=== PATIENT | female | born 1955 | race Caucasian/White ===

== ENCOUNTER 2017-06-09 12:24 | Emergency (ER) | payer MEDICARE, MEDICAID ==
[~2017-06-09] VITALS: Ht 170.2 cm; Wt 78.0 kg
[~2017-06-09 12:24] MED LIST: ALBU18HF2 IH; BUDE10.24 IH; CALC260T6 PO; CLIN-80 PO; CYCL-1 PO; DIPH25CA83 PO; DULO-31 PO; FURO-150 PO; LISI-222 PO; LOPE1TAB46 PO; OMEP-84 PO; POTA8TAB46 PO; SPIIN INH; SUMA100T PO; TOP100T PO; TRAZ-143 PO
[2017-06-09] MEDS ORDERED: ketorolac trometh inj. 60 MG/2 ML VIAL IM ONE (14:25)
[2017-06-09] MEDS ORDERED: IBUP-1984 PO (14:26)
[2017-06-09 14:36] VITALS: BP 125/82
== END 2017-06-09 14:37 | disposition home or self-care (01) ==
LOC: ER 12:24
DX: G89.29 Other chronic pain (principal); M25.571 Pain in right ankle and joints of right foot; M79.671 Pain in right foot; F15.10 Other stimulant abuse, uncomplicated; G43.909 Migraine, unspecified, not intractable, without status migrainosus; I25.10 Atherosclerotic heart disease of native coronary artery without angina pectoris; E78.00 Pure hypercholesterolemia, unspecified; I10 Essential (primary) hypertension; J44.9 Chronic obstructive pulmonary disease, unspecified; Z90.49 Acquired absence of other specified parts of digestive tract; Z98.890 Other specified postprocedural states; Z98.51 Tubal ligation status; Z88.0 Allergy status to penicillin; Z88.6 Allergy status to analgesic agent; Z88.5 Allergy status to narcotic agent; Z91.010 Allergy to peanuts; Z91.018 Allergy to other foods; Z91.040 Latex allergy status; Z79.899 Other long term (current) drug therapy
CPT/HCPCS: 96372; 99283; J1885

== ENCOUNTER 2017-07-20 09:17 | Emergency (ER) | payer MEDICARE, MEDICAID ==
[~2017-07-20] VITALS: Ht 170.2 cm; Wt 85.4 kg
[2017-07-20 09:24] VITALS: BP 142/79
== END 2017-07-20 11:39 | disposition home or self-care (01) ==
LOC: ER 09:17
DX: M25.532 Pain in left wrist (principal); I25.10 Atherosclerotic heart disease of native coronary artery without angina pectoris; E78.00 Pure hypercholesterolemia, unspecified; I10 Essential (primary) hypertension; J44.9 Chronic obstructive pulmonary disease, unspecified; G89.29 Other chronic pain; F15.90 Other stimulant use, unspecified, uncomplicated; G43.909 Migraine, unspecified, not intractable, without status migrainosus; Z90.49 Acquired absence of other specified parts of digestive tract; Z98.890 Other specified postprocedural states; Z98.51 Tubal ligation status; Z59.0 Homelessness; Z56.0 Unemployment, unspecified; Z88.0 Allergy status to penicillin; Z88.2 Allergy status to sulfonamides; Z91.018 Allergy to other foods
CPT/HCPCS: 29125; 73110; 99284

== ENCOUNTER 2017-08-22 11:28 | Emergency (ER) | payer MEDICARE, MEDICAID ==
[~2017-08-22] VITALS: Ht 170.2 cm; Wt 84.0 kg
[2017-08-22] MEDS ORDERED: ipratropium/albuterol 3ml nebule NEB ONE (12:00)
[2017-08-22] MEDS ORDERED: ALBU8.5H8 IH (13:16)
[2017-08-22] MEDS ORDERED: GUAI1TBM19 PO (13:16)
[2017-08-22] MEDS ORDERED: BENZ-49 PO (13:16)
[2017-08-22] MEDS ORDERED: DOXY100C43 PO (13:16)
[2017-08-22] MEDS ORDERED: PRED50TA PO (13:16)
[2017-08-22] MEDS ORDERED: AFRIN NS (13:16)
[2017-08-22 13:25] VITALS: BP 151/89
== END 2017-08-22 13:27 | disposition home or self-care (01) ==
LOC: ER 11:28
DX: J44.1 Chronic obstructive pulmonary disease with (acute) exacerbation (principal); J32.9 Chronic sinusitis, unspecified; G43.909 Migraine, unspecified, not intractable, without status migrainosus; I25.10 Atherosclerotic heart disease of native coronary artery without angina pectoris; E78.00 Pure hypercholesterolemia, unspecified; I10 Essential (primary) hypertension; G89.29 Other chronic pain; F15.10 Other stimulant abuse, uncomplicated; F17.200 Nicotine dependence, unspecified, uncomplicated; Z90.49 Acquired absence of other specified parts of digestive tract; Z59.0 Homelessness; Z86.19 Personal history of other infectious and parasitic diseases; Z56.0 Unemployment, unspecified; Z88.1 Allergy status to other antibiotic agents; Z88.0 Allergy status to penicillin; Z88.5 Allergy status to narcotic agent; Z88.2 Allergy status to sulfonamides; Z91.010 Allergy to peanuts; Z91.018 Allergy to other foods; Z91.040 Latex allergy status; Z79.899 Other long term (current) drug therapy
CPT/HCPCS: 71046; 93005; 94640; 94760; 99284

== ENCOUNTER 2017-08-29 07:59 | Outpatient (CLI) | payer MEDICARE, MEDICAID ==
[~2017-08-29 07:59] MED LIST changes: +ALBU8.5H8 IH; +BENZ-49 PO; +DOXY100C43 PO; +GUAI1TBM19 PO; +PRED50TA PO
== END 2017-08-29 23:59 | disposition home or self-care (01) ==
LOC: RAD 07:59
PROVIDERS: ATTEND Physician Assistant
DX: R56.9 Unspecified convulsions (principal); M25.512 Pain in left shoulder
CPT/HCPCS: 95816

== ENCOUNTER 2018-01-31 16:13 | Emergency (ER) | payer MEDICARE, MEDICAID ==
[~2018-01-31] VITALS: Ht 152.4 cm; Wt 82.7 kg
[~2018-01-31 16:13] MED LIST changes: -CLIN-80 PO; +CLIN300C85 PO; -DOXY100C43 PO; -TRAZ-143 PO; +TRAZ-218 PO
[2018-01-31] MEDS ORDERED: naproxen 500mg tablet PO ONE (17:55)
[2018-01-31] MEDS ORDERED: clindamycin 150mg capsule PO ONE (17:55)
[2018-01-31] MEDS ORDERED: CLIN150C2 PO (17:55)
[2018-01-31 18:05] VITALS: BP 130/84
== END 2018-01-31 18:10 | disposition home or self-care (01) ==
LOC: ER 16:14
DX: L08.9 Local infection of the skin and subcutaneous tissue, unspecified (principal); G43.909 Migraine, unspecified, not intractable, without status migrainosus; I25.10 Atherosclerotic heart disease of native coronary artery without angina pectoris; E78.00 Pure hypercholesterolemia, unspecified; I10 Essential (primary) hypertension; J44.9 Chronic obstructive pulmonary disease, unspecified; G89.29 Other chronic pain; F15.90 Other stimulant use, unspecified, uncomplicated; Z90.49 Acquired absence of other specified parts of digestive tract; Z98.890 Other specified postprocedural states; Z98.51 Tubal ligation status; Z59.0 Homelessness; Z56.0 Unemployment, unspecified; Z88.0 Allergy status to penicillin; Z88.6 Allergy status to analgesic agent; Z88.5 Allergy status to narcotic agent; Z88.2 Allergy status to sulfonamides; Z91.040 Latex allergy status; Z79.899 Other long term (current) drug therapy
CPT/HCPCS: 99283

== ENCOUNTER 2018-02-01 15:04 | Inpatient (IN) | payer MEDICARE, MEDICAID ==
[~2018-02-01] VITALS: Ht 152.4 cm; Wt 82.7 kg
[~2018-02-01 15:04] MED LIST changes: +CLIN150C2 PO
[2018-02-01] MEDS ORDERED: vancomycin/NS 1 GM ADD-VANTAGE 250 ML IV STA (15:44)
[2018-02-01] MEDS ORDERED: CefTRIAXone 2gm/D5W 50ml 50 ML IV ONE (15:45)
[2018-02-01] MEDS ORDERED: normal saline 1000ML IV soln IV ONE (15:45)
[2018-02-01 16:36] LABS: BASOPHILS # (AUTO) 0.1 X10'3 (0-0.2); BASOPHILS % (AUTO) 0.8 % (0-1); EOSINOPHILS % (AUTO) 0 % (0-6); HEMATOCRIT 41.3 % (35.0-45.0); HEMOGLOBIN 13.6 g/dl (12.0-16.0); LYMPHOCYTES # (AUTO) 1.2 X10'3 (1.1-4.8); LYMPHOCYTES % (AUTO) 6.6 % (21-51); MEAN CORPUSCULAR HGB CONC 33.1 % (33.0-36.5); MEAN CORPUSCULAR VOLUME 96.9 FL (78-98); MEAN PLATELET VOLUME 8.5 FL (7.4-10.4); MONOCYTES # (AUTO) 1.3 X10'3 (0-0.9); MONOCYTES % (AUTO) 7.2 % (2-12); NEUTROPHILS # (AUTO) 14.9 X10'3 (1.8-7.7); NEUTROPHILS % (AUTO) 85.4 % (42-75); PLATELET COUNT 194 X10'3 (140-440); RED BLOOD COUNT 4.26 X10'6 (4.20-5.60); RED CELL DISTRIBUTION WIDTH 13.2 % (11.5-14.5); WHITE BLOOD COUNT 17.5 X10'3 (4.5-11.0)
[2018-02-01 16:53] LABS: ALBUMIN 2.8 G/DL (3.4-5.0); ANION GAP 7 (8-16); BILIRUBIN,TOTAL 0.7 MG/DL (0.1-1.0); BLOOD UREA NITROGEN 14 MG/DL (7-18); BUN/CREATININE RATIO 16.1 (6.6-38.0); CALCIUM 8.1 MG/DL (8.5-10.1); CHLORIDE 103 MMOL/L (99-107); CREATININE 0.87 MG/DL (0.40-0.90); GLUCOSE 105 MG/DL (70-104); MAGNESIUM 1.9 MG/DL (1.5-2.4); POTASSIUM 3.7 MMOL/L (3.5-5.1); SODIUM 136 MMOL/L (135-145); TOTAL CARBON DIOXIDE 25.7 MMOL/L (24-32); TOTAL PROTEIN 6.7 G/DL (6.4-8.2); eGFR 66 ML/MIN
[2018-02-01 16:53] LABS: CLARITY,URINE SLIGHTLY CLOUDY (Clear); COLOR,URINE YELLOW (Yellow); GLUCOSE, URINE NEGATIVE (Neg); KETONES,URINE NEGATIVE (Neg); LEUKOCYTE ESTERASE ,URINE SMALL (Neg); NITRITES, URINE NEGATIVE (Neg); OCCULT BLOOD,URINE NEGATIVE (Neg); PROTEIN,URINE NEGATIVE (Neg); UA COLLECTION TYPE CLN CATCH MIDSTREAM; URINE HCG NEGATIVE (NEG)
[2018-02-01 16:54] LABS: ALANINE AMINOTRANSFERASE 20 U/L (12-78); ALBUMIN/GLOBULIN RATIO 0.7 (1.1-1.5); ALKALINE PHOSPHATASE 75 IU/L (46-116); ASPARTATE AMINO TRANSFERASE 17 U/L (10-37)
[2018-02-01 16:56] LABS: PARTIAL THROMBOPLASTIN TIME 29 SECONDS (22-32); PROTHROMBIN TIME 10.5 SECONDS (9.0-12.0)
[2018-02-01 17:01] LABS: BACTERIA,URINE 1+ /HPF (Neg); MUCUS STRANDS MODERATE /LPF (Neg); RBC,URINE 0-2 /HPF (0-2); SQUAMOUS EPITHELIAL CELL,UR MANY /LPF (FEW)
[2018-02-01] MEDS ORDERED: non-formulary drug (Albuterol Sulfate (Proair Hfa) 2 PUFFS) IH PRN (17:05)
[2018-02-01] MEDS ORDERED: SUMAtriptan 25 MG tablet PO PRN (17:05)
[2018-02-01] MEDS ORDERED: albuterol 2.5 MG/3 ML nebule NEB PRN ×2 (17:10→17:40)
[2018-02-01] MEDS ORDERED: potassium Cl 20 mEq SR tablet PO PRN (17:30)
[2018-02-01] MEDS ORDERED: magnesium Cl slow-release 64mg tablet PO PRN (17:30)
[2018-02-01] MEDS ORDERED: magnesium 4gm in 100ml NS 100 ML IV PRN (17:30)
[2018-02-01] MEDS ORDERED: mag hydrox/Alum hydrox/simeth 30ml oral suspension PO PRN (17:30)
[2018-02-01] MEDS ORDERED: magnesium 1gm/100ml D5W IVPB 100 ML IV PRN (17:30)
[2018-02-01] MEDS ORDERED: acetaminophen 325mg tablet PO PRN ×2 (17:30)
[2018-02-01] MEDS ORDERED: magnesium hydroxide 30ml (MOM) UD suspension PO PRN (17:30)
[2018-02-01] MEDS ORDERED: potassium Cl 40MEQ/NS 500ml 500 ML IV PRN ×2 (17:30)
[2018-02-01] MEDS ORDERED: ondansetron/PF 4mg/2ml inj IV PRN (17:30)
[2018-02-01] MEDS ORDERED: vancomycin inj 500 MG in normal saline 100ml IV soln 100 ML IV ONE (18:30)
[2018-02-01] MEDS: normal saline 1000ml 1,000 ML IV SCH (18:56)
[2018-02-01] MEDS ORDERED: albuterol 2.5 MG/3 ML nebule NEB SCH (20:00)
[2018-02-01] MEDS: budesonide 0.5mg/2ml UD nebule IH SCH (20:03)
[2018-02-01] MEDS: ipratropium/albuterol 3ml nebule NEB SCH (20:03)
[2018-02-01 20:07] VITALS: BP 145/67
[2018-02-01] MEDS ORDERED: pantoprazole 40mg Tablet.DR PO ONE (20:20)
[2018-02-01] MEDS: topiramate 100mg tablet PO SCH (20:24)
[2018-02-01] MEDS: heparin, porcine 5000 units/ml vial SQ SCH (20:24)
[2018-02-01] MEDS: pantoprazole 40mg Tablet.DR PO SCH (20:25)
[2018-02-01] MEDS: lisinopril 10 MG tablet PO SCH (20:26)
[2018-02-01] MEDS: duloxetine 30mg CAPSULE.DR PO SCH (20:26)
[2018-02-01] MEDS: calcium carbonate 500mg tablet PO SCH (20:26)
[2018-02-01] MEDS: traZODone 50mg tablet PO SCH (20:27)
[2018-02-01] MEDS: HYDROcodone/acetaminophen 5mg/325mg tablet PO PRN (20:37)
[2018-02-02 00:07] VITALS: BP 109/46
[2018-02-02] MEDS: ipratropium/albuterol 3ml nebule NEB SCH ×4 (03:19→20:08)
[2018-02-02] MEDS: HYDROcodone/acetaminophen 5mg/325mg tablet PO PRN ×2 (03:50→12:13)
[2018-02-02 05:46] LABS: BASOPHILS % (AUTO) 0.3 % (0-1); EOSINOPHILS # (AUTO) 0.2 X10'3 (0-0.9); EOSINOPHILS % (AUTO) 1.7 % (0-6); HEMATOCRIT 37.2 % (35.0-45.0); HEMOGLOBIN 12.4 g/dl (12.0-16.0); LYMPHOCYTES # (AUTO) 1.7 X10'3 (1.1-4.8); LYMPHOCYTES % (AUTO) 14.3 % (21-51); MEAN CORPUSCULAR HEMOGLOBIN 32.2 PG (27.0-31.0); MEAN CORPUSCULAR HGB CONC 33.3 % (33.0-36.5); MEAN CORPUSCULAR VOLUME 96.7 FL (78-98); MEAN PLATELET VOLUME 8.8 FL (7.4-10.4); MONOCYTES # (AUTO) 1.1 X10'3 (0-0.9); MONOCYTES % (AUTO) 9.6 % (2-12); NEUTROPHILS # (AUTO) 8.8 X10'3 (1.8-7.7); NEUTROPHILS % (AUTO) 74.1 % (42-75); PLATELET COUNT 180 X10'3 (140-440); RED BLOOD COUNT 3.84 X10'6 (4.20-5.60); RED CELL DISTRIBUTION WIDTH 14.1 % (11.5-14.5); WHITE BLOOD COUNT 11.9 X10'3 (4.5-11.0)
[2018-02-02 06:33] LABS: ALANINE AMINOTRANSFERASE 16 U/L (12-78); ALBUMIN 2.3 G/DL (3.4-5.0); ALBUMIN/GLOBULIN RATIO 0.7 (1.1-1.5); ALKALINE PHOSPHATASE 68 IU/L (46-116); ANION GAP 7 (8-16); ASPARTATE AMINO TRANSFERASE 18 U/L (10-37); BILIRUBIN,TOTAL 0.4 MG/DL (0.1-1.0); BLOOD UREA NITROGEN 12 MG/DL (7-18); BUN/CREATININE RATIO 17.6 (6.6-38.0); CALCIUM 7.7 MG/DL (8.5-10.1); CHLORIDE 109 MMOL/L (99-107); CREATININE 0.68 MG/DL (0.40-0.90); GLUCOSE 90 MG/DL (70-104); MAGNESIUM 1.9 MG/DL (1.5-2.4); POTASSIUM 3.3 MMOL/L (3.5-5.1); SODIUM 139 MMOL/L (135-145); TOTAL CARBON DIOXIDE 23.1 MMOL/L (24-32); TOTAL PROTEIN 5.8 G/DL (6.4-8.2); eGFR 87 ML/MIN
[2018-02-02 07:03] VITALS: BP 102/54
[2018-02-02] MEDS: calcium carbonate 500mg tablet PO SCH ×2 (07:50→20:37)
[2018-02-02] MEDS: pantoprazole 40mg Tablet.DR PO SCH (07:51)
[2018-02-02] MEDS: diphenhydrAMINE 25mg capsule PO SCH (07:51)
[2018-02-02] MEDS: heparin, porcine 5000 units/ml vial SQ SCH ×2 (07:52→20:37)
[2018-02-02] MEDS: normal saline 1000ml 1,000 ML IV SCH ×2 (07:52→20:09)
[2018-02-02] MEDS: budesonide 0.5mg/2ml UD nebule IH SCH ×2 (07:54→20:08)
[2018-02-02] MEDS: potassium Cl 20 mEq SR tablet PO PRN ×3 (07:56→20:40)
[2018-02-02] MEDS ORDERED: levoFLOXACIN 500mg tablet PO SCH (08:00)
[2018-02-02] MEDS ORDERED: K and/or MAG REPLACEMENT MC SCH (08:00)
[2018-02-02] MEDS ORDERED: vancomycin inj 1,250 MG in normal saline 250ml IV soln 250 ML IV SCH ×2 (08:00→16:00)
[2018-02-02] MEDS ORDERED: ipratropium 0.5 MG/2.5ML nebule IH SCH (08:00)
[2018-02-02 11:00] VITALS: BP 94/49
[2018-02-02 18:00] VITALS: BP 103/60
[2018-02-02] MEDS: duloxetine 30mg CAPSULE.DR PO SCH (20:36)
[2018-02-02] MEDS: traZODone 50mg tablet PO SCH (20:36)
[2018-02-02] MEDS: vancomycin inj 1,250 MG in normal saline 250ml IV soln 250 ML IV SCH (20:37)
[2018-02-02] MEDS: lisinopril 10 MG tablet PO SCH (20:37)
[2018-02-02] MEDS: topiramate 100mg tablet PO SCH (20:37)
[2018-02-02] MEDS: lactobacillus rhamnosus 10,000 MMU CELLS/CAPSULE PO SCH (20:37)
[2018-02-03] VITALS: BP 95/49
[2018-02-03] MEDS: ipratropium/albuterol 3ml nebule NEB SCH ×2 (03:00→08:29)
[2018-02-03] MEDS: normal saline 1000ml 1,000 ML IV SCH (03:37)
[2018-02-03 05:50] LABS: BASOPHILS % (AUTO) 0.6 % (0-1); EOSINOPHILS # (AUTO) 0.3 X10'3 (0-0.9); EOSINOPHILS % (AUTO) 5.6 % (0-6); HEMATOCRIT 37.2 % (35.0-45.0); HEMOGLOBIN 12.4 g/dl (12.0-16.0); LYMPHOCYTES # (AUTO) 1.7 X10'3 (1.1-4.8); LYMPHOCYTES % (AUTO) 28.2 % (21-51); MEAN CORPUSCULAR HGB CONC 33.2 % (33.0-36.5); MEAN CORPUSCULAR VOLUME 96.3 FL (78-98); MEAN PLATELET VOLUME 8.6 FL (7.4-10.4); MONOCYTES # (AUTO) 0.6 X10'3 (0-0.9); MONOCYTES % (AUTO) 10.8 % (2-12); NEUTROPHILS # (AUTO) 3.2 X10'3 (1.8-7.7); NEUTROPHILS % (AUTO) 54.8 % (42-75); PLATELET COUNT 186 X10'3 (140-440); RED BLOOD COUNT 3.86 X10'6 (4.20-5.60); RED CELL DISTRIBUTION WIDTH 14.7 % (11.5-14.5); WHITE BLOOD COUNT 5.9 X10'3 (4.5-11.0)
[2018-02-03 06:10] LABS: ALANINE AMINOTRANSFERASE 17 U/L (12-78); ALBUMIN/GLOBULIN RATIO 0.6 (1.1-1.5); ALKALINE PHOSPHATASE 65 IU/L (46-116); ANION GAP 5 (8-16); ASPARTATE AMINO TRANSFERASE 16 U/L (10-37); BILIRUBIN,TOTAL 0.2 MG/DL (0.1-1.0); BLOOD UREA NITROGEN 8 MG/DL (7-18); BUN/CREATININE RATIO 10.1 (6.6-38.0); CALCIUM 7.8 MG/DL (8.5-10.1); CHLORIDE 110 MMOL/L (99-107); CREATININE 0.79 MG/DL (0.40-0.90); GLUCOSE 90 MG/DL (70-104); MAGNESIUM 1.8 MG/DL (1.5-2.4); SODIUM 140 MMOL/L (135-145); TOTAL CARBON DIOXIDE 25.1 MMOL/L (24-32); TOTAL PROTEIN 5.4 G/DL (6.4-8.2); eGFR 74 ML/MIN
[2018-02-03 07:00] VITALS: BP 98/45
[2018-02-03] MEDS ORDERED: VANCOMYCIN LEVEL IV ONE ×2 (07:30→19:30)
[2018-02-03] MEDS: vancomycin inj 1,250 MG in normal saline 250ml IV soln 250 ML IV SCH (08:03)
[2018-02-03] MEDS: diphenhydrAMINE 25mg capsule PO SCH (08:03)
[2018-02-03] MEDS: lactobacillus rhamnosus 10,000 MMU CELLS/CAPSULE PO SCH (08:04)
[2018-02-03] MEDS: calcium carbonate 500mg tablet PO SCH (08:04)
[2018-02-03] MEDS: pantoprazole 40mg Tablet.DR PO SCH (08:04)
[2018-02-03] MEDS: heparin, porcine 5000 units/ml vial SQ SCH (08:05)
[2018-02-03] MEDS: budesonide 0.5mg/2ml UD nebule IH SCH (08:29)
== END 2018-02-03 11:26 | disposition home or self-care (01) | DRG 872 ==
LOC: ER 15:05 → ED HOLD 17:29 → SUR 3N 19:50
PROVIDERS: ADMIT Internal Medicine; ATTEND Internal Medicine
DX: A41.9 Sepsis, unspecified organism (principal); L03.115 Cellulitis of right lower limb; J44.9 Chronic obstructive pulmonary disease, unspecified; E78.00 Pure hypercholesterolemia, unspecified; E78.5 Hyperlipidemia, unspecified; F17.200 Nicotine dependence, unspecified, uncomplicated; F20.9 Schizophrenia, unspecified; F41.0 Panic disorder [episodic paroxysmal anxiety]; G89.29 Other chronic pain; I10 Essential (primary) hypertension; I25.10 Atherosclerotic heart disease of native coronary artery without angina pectoris; F32.9 Major depressive disorder, single episode, unspecified; F41.9 Anxiety disorder, unspecified; G43.909 Migraine, unspecified, not intractable, without status migrainosus; F15.90 Other stimulant use, unspecified, uncomplicated; E87.6 Hypokalemia; B19.20 Unspecified viral hepatitis C without hepatic coma; Z59.0 Homelessness; Z88.0 Allergy status to penicillin; Z90.49 Acquired absence of other specified parts of digestive tract; Z88.8 Allergy status to other drugs, medicaments and biological substances; Z88.2 Allergy status to sulfonamides; Z88.1 Allergy status to other antibiotic agents; Z91.040 Latex allergy status; Z91.010 Allergy to peanuts; Z91.018 Allergy to other foods; Z79.899 Other long term (current) drug therapy; Z71.6 Tobacco abuse counseling
CPT/HCPCS: 36415; 71045; 80053; 81001; 81025; 83605; 83735; 84145; 85025; 85610; 85730; 87040; 87070; 93005; 94640; 94760; 96365; 96368; 99285; A6213; J0696; J1644; J3370; J7030; J7626; Q0163

== ENCOUNTER 2018-02-07 08:28 | Outpatient (CLI) | payer MEDICARE, MEDICAID ==
[2018-02-07] VITALS (7 sets, daily range): BP systolic 120–128; BP diastolic 64–74
[~2018-02-07] VITALS: Ht 152.4 cm; Wt 85.0 kg
[~2018-02-07 08:28] MED LIST changes: -BENZ-49 PO; -CLIN150C2 PO; -CLIN300C85 PO; -CYCL-1 PO; -DIPH25CA83 PO; -FURO-150 PO; -GUAI1TBM19 PO; -LOPE1TAB46 PO; -POTA8TAB46 PO; -PRED50TA PO; -SUMA100T PO
[2018-02-07] MEDS ORDERED: aminophylline 250mg/10ml inj. IV ONE (09:20)
[2018-02-07] MEDS ORDERED: regadenoson 0.4mg/5ml syringe IV ONE ×2 (09:20→10:18)
[2018-02-07] MEDS ORDERED: nitroGLYCERIN 0.4mg SUBLingual tab SL PRN (09:20)
[2018-02-07] MEDS ORDERED: CAFFEINE CITRATE 60 MG/3 ML injection vial IV ONE ×2 (10:15→10:18)
== END 2018-02-07 23:59 | disposition home or self-care (01) ==
LOC: RAD 08:28
PROVIDERS: ATTEND Internal Medicine Cardiovascular Disease
DX: Z01.818 Encounter for other preprocedural examination (principal); I10 Essential (primary) hypertension; F17.200 Nicotine dependence, unspecified, uncomplicated; F19.10 Other psychoactive substance abuse, uncomplicated; I25.10 Atherosclerotic heart disease of native coronary artery without angina pectoris; J44.9 Chronic obstructive pulmonary disease, unspecified; Z98.51 Tubal ligation status; Z79.899 Other long term (current) drug therapy; Z96.653 Presence of artificial knee joint, bilateral
CPT/HCPCS: 78452; 93017; A9500

== ENCOUNTER 2018-02-13 11:04 | Emergency (ER) | payer MEDICARE, MEDICAID ==
[~2018-02-13] VITALS: Ht 152.4 cm; Wt 90.0 kg
[2018-02-13] MEDS ORDERED: epiNEPHrine 1 mg/ml inj SQ STA (11:19)
[2018-02-13] MEDS ORDERED: famotidine/PF 10 mg/ml inj IV ONE (11:20)
[2018-02-13] MEDS ORDERED: methylPREDNISolone sod succ 125mg/2ml vial IV ONE (11:20)
[2018-02-13] MEDS ORDERED: normal saline 1000ML IV soln IVB ONE (11:20)
[2018-02-13] MEDS ORDERED: EPIN0.3P8 IM (12:07)
[2018-02-13 12:29] VITALS: BP 139/57
== END 2018-02-13 12:31 | disposition home or self-care (01) ==
LOC: ER 11:05
DX: T78.40XA Allergy, unspecified, initial encounter (principal); G43.909 Migraine, unspecified, not intractable, without status migrainosus; I25.10 Atherosclerotic heart disease of native coronary artery without angina pectoris; E78.00 Pure hypercholesterolemia, unspecified; I10 Essential (primary) hypertension; J44.9 Chronic obstructive pulmonary disease, unspecified; F15.90 Other stimulant use, unspecified, uncomplicated; Z90.49 Acquired absence of other specified parts of digestive tract; Z98.51 Tubal ligation status; Z56.0 Unemployment, unspecified; Z59.0 Homelessness; Z88.6 Allergy status to analgesic agent; Z88.1 Allergy status to other antibiotic agents; Z91.040 Latex allergy status; Z88.0 Allergy status to penicillin; Z88.2 Allergy status to sulfonamides; Z91.018 Allergy to other foods; Z91.010 Allergy to peanuts; X58.XXXA Exposure to other specified factors, initial encounter
CPT/HCPCS: 96372; 96374; 96375; 99284; J0171; J2930; J3490; 96361

== ENCOUNTER 2018-04-03 10:13 | Inpatient (IN) | payer MEDICARE, MEDICAID ==
[2018-04-02 12:10] LABS: BASOPHILS # (AUTO) 0.1 X10'3 (0-0.2); BASOPHILS % (AUTO) 0.5 % (0-1); EOSINOPHILS # (AUTO) 0.2 X10'3 (0-0.9); EOSINOPHILS % (AUTO) 1.7 % (0-6); LYMPHOCYTES # (AUTO) 1.2 X10'3 (1.1-4.8); LYMPHOCYTES % (AUTO) 9.1 % (21-51); MEAN CORPUSCULAR HEMOGLOBIN 32.1 PG (27.0-31.0); MEAN CORPUSCULAR HGB CONC 32.9 % (33.0-36.5); MEAN CORPUSCULAR VOLUME 97.6 FL (78-98); MEAN PLATELET VOLUME 8.1 FL (7.4-10.4); MONOCYTES # (AUTO) 0.6 X10'3 (0-0.9); MONOCYTES % (AUTO) 4.5 % (2-12); NEUTROPHILS # (AUTO) 10.9 X10'3 (1.8-7.7); NEUTROPHILS % (AUTO) 84.2 % (42-75); PRE OP HEMATOCRIT 44.4 % (35.0-45.0); PRE OP HEMOGLOBIN 14.6 g/dL (12.0-16.0); PRE OP PLATELET COUNT 249 X10'3 (140-440); RED BLOOD COUNT 4.55 X10'6 (4.20-5.60); RED CELL DISTRIBUTION WIDTH 14.2 % (11.5-14.5)
[2018-04-02 12:24] LABS: ALBUMIN 3.3 G/DL (3.4-5.0); ALBUMIN/GLOBULIN RATIO 0.8 (1.1-1.5); ALKALINE PHOSPHATASE 94 IU/L (46-116); BLOOD UREA NITROGEN 12 MG/DL (7-18); BUN/CREATININE RATIO 14.3 (6.6-38.0); CHLORIDE 108 MMOL/L (99-107); CREATININE 0.84 MG/DL (0.40-0.90); PRE OP ALT 34 U/L (30-65); PRE OP ANION GAP 7 (8-16); PRE OP AST 32 U/L (10-37); PRE OP BILIRUB, TOTAL 0.5 MG/DL (0.0-1.0); PRE OP GLUCOSE 91 MG/DL (70-104); PRE OP POTASSIUM 3.7 MMOL/L (3.4-5.1); PRE OP SODIUM 143 MMOL/L (135-145); TOTAL CARBON DIOXIDE 27.6 MMOL/L (24-32); TOTAL PROTEIN 7.5 G/DL (6.4-8.2); eGFR 68 ML/MIN
[~2018-04-03] VITALS: Ht 167.6 cm; Wt 78.7 kg
[~2018-04-03 10:13] MED LIST changes: -ALBU18HF2 IH; +ALBU18HF2 INH; -ALBU8.5H8 IH; +BUDE10.2 INH; -BUDE10.24 IH; -CALC260T6 PO; +EPI PEN IM; +HYDR28CR14 TP; +IBUP-1984 PO; -LISI-222 PO; +LISI30TA4 PO; +POLY17PO10 PO; +POTA8CAP9 PO; +SUMA50TA PO; +VANCOMYCIN INJ 1000 MG in NORMAL SALINE 250ml IV.SOLN IV ONE; +albuterol 2.5 MG/3 ML nebule NEB ONE; +famotidine 20mg tablet PO ONE; +ringers solution, lacted 1,000 ML IV SCH; +tranexamic acid inj. 810 MG in normal saline 100ml IV soln 91.9 ML IV ONE
[2018-04-03 11:01] VITALS: BP 118/80
[2018-04-03] MEDS ORDERED: cefazolin/dext.iso 2gm/100 ML IV ONE (11:02)
[2018-04-03] MEDS ORDERED: ipratropium/albuterol 3ml nebule NEB PRN (11:05)
[2018-04-03 11:44] VITALS: BP 118/80
[2018-04-04] MEDS ORDERED: PRED20TA PO (09:31)
[2018-04-04] MEDS ORDERED: LEVO500T89 PO (09:31)
== END 2018-04-03 14:50 | disposition home or self-care (01) | DRG 558 ==
LOC: PAS IN 10:13 → EDSTATUS 13:30
PROVIDERS: ADMIT Orthopaedic Surgery; ATTEND Orthopaedic Surgery
DX: M75.112 Incomplete rotator cuff tear or rupture of left shoulder, not specified as traumatic (principal); M19.012 Primary osteoarthritis, left shoulder; F41.9 Anxiety disorder, unspecified; J44.9 Chronic obstructive pulmonary disease, unspecified; Z53.9 Procedure and treatment not carried out, unspecified reason; G89.4 Chronic pain syndrome; M25.512 Pain in left shoulder; Z96.653 Presence of artificial knee joint, bilateral; B18.2 Chronic viral hepatitis C; F17.210 Nicotine dependence, cigarettes, uncomplicated; I10 Essential (primary) hypertension; K21.9 Gastro-esophageal reflux disease without esophagitis; E66.01 Morbid (severe) obesity due to excess calories; Z88.0 Allergy status to penicillin; Z88.5 Allergy status to narcotic agent; Z79.899 Other long term (current) drug therapy; Z68.28 Body mass index [BMI] 28.0-28.9, adult
CPT/HCPCS: 36415; 80053; 85025; 87070; 94640; J0690; J3370; J7030; J7120

== ENCOUNTER 2018-04-04 08:38 | Emergency (ER) | payer MEDICARE, MEDICAID ==
[~2018-04-04] VITALS: Ht 167.6 cm; Wt 80.9 kg
[~2018-04-04 08:38] MED LIST changes: -VANCOMYCIN INJ 1000 MG in NORMAL SALINE 250ml IV.SOLN IV ONE; -albuterol 2.5 MG/3 ML nebule NEB ONE; -famotidine 20mg tablet PO ONE; -ringers solution, lacted 1,000 ML IV SCH; -tranexamic acid inj. 810 MG in normal saline 100ml IV soln 91.9 ML IV ONE
[2018-04-04] MEDS ORDERED: levoFLOXACIN 250mg tablet PO ONE (09:00)
[2018-04-04] MEDS ORDERED: predniSONE 20 mg tablet PO ONE (09:00)
[2018-04-04] MEDS ORDERED: albuterol 2.5 MG/3 ML nebule NEB ONE (09:00)
[2018-04-04] MEDS ORDERED: ipratropium/albuterol 3ml nebule NEB ONE (09:00)
[2018-04-04] MEDS ORDERED: PRED20TA PO (09:31)
[2018-04-04] MEDS ORDERED: LEVO500T89 PO (09:31)
[2018-04-04 09:56] VITALS: BP 134/80
== END 2018-04-04 09:58 | disposition home or self-care (01) ==
LOC: ER 08:38
DX: J44.1 Chronic obstructive pulmonary disease with (acute) exacerbation (principal); G43.909 Migraine, unspecified, not intractable, without status migrainosus; I25.10 Atherosclerotic heart disease of native coronary artery without angina pectoris; I10 Essential (primary) hypertension; E78.00 Pure hypercholesterolemia, unspecified; G89.29 Other chronic pain; F15.90 Other stimulant use, unspecified, uncomplicated; Z90.49 Acquired absence of other specified parts of digestive tract; Z88.0 Allergy status to penicillin; Z88.2 Allergy status to sulfonamides; Z88.1 Allergy status to other antibiotic agents; Z91.040 Latex allergy status; Z88.5 Allergy status to narcotic agent; Z91.010 Allergy to peanuts; Z91.018 Allergy to other foods; Z88.8 Allergy status to other drugs, medicaments and biological substances; Z79.2 Long term (current) use of antibiotics; Z79.899 Other long term (current) drug therapy; Z59.0 Homelessness; Z56.0 Unemployment, unspecified
CPT/HCPCS: 71045; 93005; 94640; 94760; 99284; J7512

== ENCOUNTER 2018-04-17 10:34 | Emergency (ER) | payer MEDICARE, MEDICAID ==
[~2018-04-17] VITALS: Ht 167.6 cm; Wt 80.8 kg
[~2018-04-17 10:34] MED LIST changes: +PRED20TA PO
[2018-04-17 10:43] VITALS: BP 135/75
== END 2018-04-17 13:46 | disposition home or self-care (01) ==
LOC: ER 10:35
DX: S90.31XA Contusion of right foot, initial encounter (principal); S50.11XA Contusion of right forearm, initial encounter; G43.909 Migraine, unspecified, not intractable, without status migrainosus; I25.10 Atherosclerotic heart disease of native coronary artery without angina pectoris; E78.00 Pure hypercholesterolemia, unspecified; I10 Essential (primary) hypertension; J44.9 Chronic obstructive pulmonary disease, unspecified; G89.29 Other chronic pain; F41.0 Panic disorder [episodic paroxysmal anxiety]; F41.9 Anxiety disorder, unspecified; F32.9 Major depressive disorder, single episode, unspecified; F20.9 Schizophrenia, unspecified; Z59.0 Homelessness; Z56.0 Unemployment, unspecified; F15.10 Other stimulant abuse, uncomplicated; F17.200 Nicotine dependence, unspecified, uncomplicated; Z90.49 Acquired absence of other specified parts of digestive tract; Z90.89 Acquired absence of other organs; Z86.19 Personal history of other infectious and parasitic diseases; Z79.899 Other long term (current) drug therapy; Z88.0 Allergy status to penicillin; Z88.1 Allergy status to other antibiotic agents; Z88.5 Allergy status to narcotic agent; Z91.010 Allergy to peanuts; Z88.2 Allergy status to sulfonamides; Z91.018 Allergy to other foods; W10.9XXA Fall (on) (from) unspecified stairs and steps, initial encounter; Y93.89 Activity, other specified; Y92.89 Other specified places as the place of occurrence of the external cause; Y99.8 Other external cause status
CPT/HCPCS: 73650; 99284

== ENCOUNTER 2018-04-27 13:46 | Emergency (ER) | payer MEDICARE, MEDICAID ==
[~2018-04-27] VITALS: Ht 167.6 cm; Wt 79.5 kg
[2018-04-27 14:28] LABS: BASOPHILS % (AUTO) 0 % (0-1); EOSINOPHILS % (AUTO) 0 % (0-6); HEMATOCRIT 43.3 % (35.0-45.0); HEMOGLOBIN 14.2 g/dl (12.0-16.0); LYMPHOCYTES # (AUTO) 0.4 X10'3 (1.1-4.8); MEAN CORPUSCULAR HEMOGLOBIN 31.7 PG (27.0-31.0); MEAN CORPUSCULAR HGB CONC 32.8 % (33.0-36.5); MEAN CORPUSCULAR VOLUME 96.6 FL (78-98); MEAN PLATELET VOLUME 8.4 FL (7.4-10.4); MONOCYTES # (AUTO) 0.1 X10'3 (0-0.9); MONOCYTES % (AUTO) 1.2 % (2-12); NEUTROPHILS # (AUTO) 11.3 X10'3 (1.8-7.7); NEUTROPHILS % (AUTO) 95.8 % (42-75); PLATELET COUNT 248 X10'3 (140-440); RED BLOOD COUNT 4.48 X10'6 (4.20-5.60); RED CELL DISTRIBUTION WIDTH 14.1 % (11.5-14.5); WHITE BLOOD COUNT 11.8 X10'3 (4.5-11.0)
[2018-04-27] MEDS ORDERED: levoFLOXACIN 750MG TABLET PO ONE (15:10)
[2018-04-27 15:49] LABS: URINE AMPHETAMINE SCREEN POSITIVE (Neg); URINE BARBITUATE SCREEN NEGATIVE (Neg); URINE BENZODIAZEPINES SCREEN NEGATIVE (Neg); URINE CANNABINOID SCREEN NEGATIVE (Neg); URINE COCAINE SCREEN NEGATIVE (Neg); URINE METHADONE SCREEN NEGATIVE (Neg); URINE OPIATE SCREEN NEGATIVE (Neg); URINE PHENCYCLIDINE SCREEN NEGATIVE (Neg)
[2018-04-27 15:51] LABS: ALANINE AMINOTRANSFERASE 28 U/L (12-78); ALBUMIN 3.2 G/DL (3.4-5.0); ALBUMIN/GLOBULIN RATIO 0.7 (1.1-1.5); ALKALINE PHOSPHATASE 89 IU/L (46-116); ANION GAP 9 (8-16); ASPARTATE AMINO TRANSFERASE 27 U/L (10-37); BILIRUBIN,TOTAL 0.3 MG/DL (0.1-1.0); BLOOD UREA NITROGEN 21 MG/DL (7-18); BUN/CREATININE RATIO 27.3 (6.6-38.0); CALCIUM 8.7 MG/DL (8.5-10.1); CHLORIDE 106 MMOL/L (99-107); CREATININE 0.77 MG/DL (0.40-0.90); GLUCOSE 119 MG/DL (70-104); POTASSIUM 4.3 MMOL/L (3.5-5.1); SODIUM 139 MMOL/L (135-145); TOTAL PROTEIN 7.5 G/DL (6.4-8.2); eGFR 76 ML/MIN
[2018-04-27] MEDS ORDERED: LEVO750T21 PO (16:01)
[2018-04-27 16:31] VITALS: BP 118/59
== END 2018-04-27 16:34 | disposition home or self-care (01) ==
LOC: ER 13:47
DX: J06.9 Acute upper respiratory infection, unspecified (principal); F15.10 Other stimulant abuse, uncomplicated; I25.10 Atherosclerotic heart disease of native coronary artery without angina pectoris; G43.909 Migraine, unspecified, not intractable, without status migrainosus; E78.00 Pure hypercholesterolemia, unspecified; J44.9 Chronic obstructive pulmonary disease, unspecified; G89.29 Other chronic pain; I10 Essential (primary) hypertension; Z90.49 Acquired absence of other specified parts of digestive tract; F17.200 Nicotine dependence, unspecified, uncomplicated; Z88.0 Allergy status to penicillin; Z88.2 Allergy status to sulfonamides; Z88.1 Allergy status to other antibiotic agents; Z88.6 Allergy status to analgesic agent; Z91.040 Latex allergy status; Z88.5 Allergy status to narcotic agent; Z91.010 Allergy to peanuts; Z88.8 Allergy status to other drugs, medicaments and biological substances; Z91.018 Allergy to other foods; Z79.899 Other long term (current) drug therapy; Z56.0 Unemployment, unspecified; Z59.0 Homelessness
CPT/HCPCS: 36415; 71046; 80053; 80305; 85025; 99284

== ENCOUNTER 2018-07-12 10:05 | Emergency (ER) | payer MEDICARE, MEDICAID ==
[~2018-07-12] VITALS: Ht 167.6 cm; Wt 76.8 kg
[~2018-07-12 10:05] MED LIST changes: -PRED20TA PO
[2018-07-12 10:13] VITALS: BP 132/91
[2018-07-12] MEDS ORDERED: ketorolac tromethamine 15mg/ml inj. IM ONE (11:15)
[2018-07-12] MEDS ORDERED: NAPR-56 PO (11:17)
== END 2018-07-12 11:58 | disposition home or self-care (01) ==
LOC: ER 10:05
DX: M25.562 Pain in left knee (principal); G43.909 Migraine, unspecified, not intractable, without status migrainosus; I25.10 Atherosclerotic heart disease of native coronary artery without angina pectoris; E78.00 Pure hypercholesterolemia, unspecified; I10 Essential (primary) hypertension; J44.9 Chronic obstructive pulmonary disease, unspecified; G89.29 Other chronic pain; F15.90 Other stimulant use, unspecified, uncomplicated; Z96.651 Presence of right artificial knee joint; Z96.652 Presence of left artificial knee joint; Z88.0 Allergy status to penicillin; Z88.6 Allergy status to analgesic agent; Z91.010 Allergy to peanuts; Z91.018 Allergy to other foods; Z88.2 Allergy status to sulfonamides; Z88.1 Allergy status to other antibiotic agents; Z91.040 Latex allergy status; Z79.899 Other long term (current) drug therapy; Z87.19 Personal history of other diseases of the digestive system; Z90.49 Acquired absence of other specified parts of digestive tract; Z98.51 Tubal ligation status; Z56.0 Unemployment, unspecified; Z59.0 Homelessness; X58.XXXA Exposure to other specified factors, initial encounter; Y93.01 Activity, walking, marching and hiking; Y92.488 Other paved roadways as the place of occurrence of the external cause; Y99.8 Other external cause status
CPT/HCPCS: 29505; 73564; 96372; 99284; J1885

== ENCOUNTER 2018-12-10 17:34 | Emergency (ER) | payer MEDICARE, MEDICAID ==
[~2018-12-10] VITALS: Ht 167.6 cm; Wt 73.6 kg
[~2018-12-10 17:34] MED LIST changes: -TRAZ-218 PO; +TRAZ-251 PO
[2018-12-10 17:59] VITALS: BP 160/75
[2018-12-10] MEDS ORDERED: traMADol 50MG tablet PO ONE (19:15)
[2018-12-10] MEDS ORDERED: TRAM50TA2 PO (19:18)
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
== END 2018-12-10 19:45 | disposition home or self-care (01) ==
LOC: ER 17:35
DX: M25.571 Pain in right ankle and joints of right foot (principal); G43.909 Migraine, unspecified, not intractable, without status migrainosus; I25.10 Atherosclerotic heart disease of native coronary artery without angina pectoris; E78.00 Pure hypercholesterolemia, unspecified; I10 Essential (primary) hypertension; J44.9 Chronic obstructive pulmonary disease, unspecified; G89.29 Other chronic pain; F41.9 Anxiety disorder, unspecified; F32.9 Major depressive disorder, single episode, unspecified; F20.9 Schizophrenia, unspecified; F15.90 Other stimulant use, unspecified, uncomplicated; Z86.19 Personal history of other infectious and parasitic diseases; Z90.49 Acquired absence of other specified parts of digestive tract; Z98.51 Tubal ligation status; Z98.890 Other specified postprocedural states; Z59.0 Homelessness; Z56.0 Unemployment, unspecified; Z88.0 Allergy status to penicillin; Z88.5 Allergy status to narcotic agent; Z91.018 Allergy to other foods; Z91.010 Allergy to peanuts; Z88.2 Allergy status to sulfonamides; Z88.1 Allergy status to other antibiotic agents; Z91.040 Latex allergy status; Z79.899 Other long term (current) drug therapy; W18.39XA Other fall on same level, initial encounter; Y93.89 Activity, other specified; Y92.89 Other specified places as the place of occurrence of the external cause; Y99.8 Other external cause status
CPT/HCPCS: 73610; 99284

== ENCOUNTER 2019-01-14 09:36 | Emergency (ER) | payer MEDICARE, MEDICAID ==
[~2019-01-14] VITALS: Ht 165.1 cm; Wt 78.0 kg
[~2019-01-14 09:36] MED LIST changes: +POTA8CAP20 PO; -POTA8CAP9 PO
[2019-01-14 09:50] VITALS: BP 128/86
== END 2019-01-14 11:30 | disposition left against medical advice (07) ==
LOC: ER 09:37
DX: S09.90XA Unspecified injury of head, initial encounter (principal); Z53.21 Procedure and treatment not carried out due to patient leaving prior to being seen by health care provider; W22.8XXA Striking against or struck by other objects, initial encounter; Y93.89 Activity, other specified; Y92.89 Other specified places as the place of occurrence of the external cause; Y99.9 Unspecified external cause status

== ENCOUNTER 2019-02-12 13:59 | Emergency (ER) | payer MEDICARE, MEDICAID ==
[~2019-02-12] VITALS: Ht 167.6 cm; Wt 79.5 kg
[2019-02-12 14:56] VITALS: BP 128/64
== END 2019-02-12 14:58 | disposition home or self-care (01) ==
LOC: ER 13:59
DX: S93.491A Sprain of other ligament of right ankle, initial encounter (principal); G43.909 Migraine, unspecified, not intractable, without status migrainosus; I25.10 Atherosclerotic heart disease of native coronary artery without angina pectoris; E78.00 Pure hypercholesterolemia, unspecified; I10 Essential (primary) hypertension; J45.909 Unspecified asthma, uncomplicated; J43.9 Emphysema, unspecified; G89.29 Other chronic pain; F41.9 Anxiety disorder, unspecified; F15.90 Other stimulant use, unspecified, uncomplicated; F32.9 Major depressive disorder, single episode, unspecified; F41.0 Panic disorder [episodic paroxysmal anxiety]; F20.9 Schizophrenia, unspecified; Z90.49 Acquired absence of other specified parts of digestive tract; Z98.51 Tubal ligation status; Z98.890 Other specified postprocedural states; Z56.0 Unemployment, unspecified; Z59.0 Homelessness; Z88.0 Allergy status to penicillin; Z91.010 Allergy to peanuts; Z91.018 Allergy to other foods; Z88.2 Allergy status to sulfonamides; Z91.040 Latex allergy status; Z79.899 Other long term (current) drug therapy; X50.1XXA Overexertion from prolonged static or awkward postures, initial encounter; Y93.89 Activity, other specified; Y92.89 Other specified places as the place of occurrence of the external cause; Y99.8 Other external cause status
CPT/HCPCS: 73610; 99283

== ENCOUNTER 2019-02-17 10:37 | Emergency (ER) | payer MEDICARE, MEDICAID ==
[~2019-02-17] VITALS: Ht 167.6 cm; Wt 79.5 kg
[2019-02-17 10:48] VITALS: BP 137/69
[2019-02-17] MEDS ORDERED: LIDOcaine 1% w/EPI 1:200,000 injection 10mL vial IM ONE (11:05)
[2019-02-17] MEDS ORDERED: TETanus/Pertussis (Acell)/Diphther VAC/PF (Tdap-Adult) 0.5ml syringe IM ONE (11:05)
[2019-02-17] MEDS ORDERED: LIDOcaine 1% W/epiNEPHrine 1:100,000 20ml vial IJ ONE (11:10)
== END 2019-02-17 11:59 | disposition home or self-care (01) ==
LOC: ER 10:38
DX: S61.412A Laceration without foreign body of left hand, initial encounter (principal); G43.909 Migraine, unspecified, not intractable, without status migrainosus; I25.10 Atherosclerotic heart disease of native coronary artery without angina pectoris; E78.00 Pure hypercholesterolemia, unspecified; I10 Essential (primary) hypertension; J44.9 Chronic obstructive pulmonary disease, unspecified; G89.29 Other chronic pain; F15.90 Other stimulant use, unspecified, uncomplicated; Z59.0 Homelessness; Z56.0 Unemployment, unspecified; Z90.49 Acquired absence of other specified parts of digestive tract; Z98.51 Tubal ligation status; Z98.890 Other specified postprocedural states; Z88.0 Allergy status to penicillin; Z88.6 Allergy status to analgesic agent; Z88.5 Allergy status to narcotic agent; Z91.010 Allergy to peanuts; Z88.2 Allergy status to sulfonamides; Z91.040 Latex allergy status; Z79.899 Other long term (current) drug therapy; W45.8XXA Other foreign body or object entering through skin, initial encounter; Y93.89 Activity, other specified; Y92.89 Other specified places as the place of occurrence of the external cause; Y99.9 Unspecified external cause status
CPT/HCPCS: 29260; 90471; 99284

== ENCOUNTER 2019-02-25 06:48 | Inpatient (IN) | payer MEDICARE, MEDICAID ==
[~2019-02-25] VITALS: Ht 167.6 cm; Wt 79.5 kg
[2019-02-25] MEDS ORDERED: methylPREDNISolone sod succ 125mg/2ml vial IV ONE (07:00)
[2019-02-25] MEDS ORDERED: ciprofloxacin 250mg tablet PO ONE (07:00)
[2019-02-25] MEDS ORDERED: ipratropium/albuterol 3ml nebule NEB ONE (07:10)
[2019-02-25] MEDS ORDERED: albuterol 2.5 MG/3 ML nebule NEB ONE (07:10)
[2019-02-25 07:26] LABS: BASOPHILS % (AUTO) 0.3 % (0-1); EOSINOPHILS # (AUTO) 0.1 X10'3 (0-0.9); EOSINOPHILS % (AUTO) 0.5 % (0-6); HEMATOCRIT 43.9 % (35.0-45.0); HEMOGLOBIN 14.6 g/dl (12.0-16.0); LYMPHOCYTES # (AUTO) 1.5 X10'3 (1.1-4.8); MEAN CORPUSCULAR HEMOGLOBIN 32.1 PG (27.0-31.0); MEAN CORPUSCULAR HGB CONC 33.3 g/dL (33.0-36.5); MEAN CORPUSCULAR VOLUME 96.4 FL (78-98); MEAN PLATELET VOLUME 8.4 FL (7.4-10.4); MONOCYTES # (AUTO) 1.1 X10'3 (0-0.9); MONOCYTES % (AUTO) 6.7 % (2-12); NEUTROPHILS # (AUTO) 13.9 X10'3 (1.8-7.7); NEUTROPHILS % (AUTO) 83.5 % (42-75); PLATELET COUNT 224 X10'3 (140-440); RED BLOOD COUNT 4.56 X10'6 (4.20-5.60); RED CELL DISTRIBUTION WIDTH 14.6 % (11.5-14.5); WHITE BLOOD COUNT 16.7 X10'3 (4.5-11.0)
[2019-02-25] MEDS ORDERED: SUMAtriptan 25 MG tablet PO PRN (08:00)
[2019-02-25 08:10] LABS: PARTIAL THROMBOPLASTIN TIME 28 SECONDS (22-32)
[2019-02-25 08:15] LABS: ALANINE AMINOTRANSFERASE 28 U/L (12-78); ALBUMIN 3.1 G/DL (3.4-5.0); ALBUMIN/GLOBULIN RATIO 0.8 (1.1-1.5); ALKALINE PHOSPHATASE 86 IU/L (46-116); ANION GAP 9 (8-16); ASPARTATE AMINO TRANSFERASE 25 U/L (10-37); BILIRUBIN,TOTAL 0.8 MG/DL (0.1-1.0); BLOOD UREA NITROGEN 11 MG/DL (7-18); BUN/CREATININE RATIO 12.9 (6.6-38.0); CALCIUM 8.4 MG/DL (8.5-10.1); CHLORIDE 108 MMOL/L (99-107); CREATININE 0.85 MG/DL (0.40-0.90); GLUCOSE 107 MG/DL (70-104); POTASSIUM 3.8 MMOL/L (3.5-5.1); SODIUM 141 MMOL/L (135-145); TOTAL CARBON DIOXIDE 24.5 MMOL/L (24-32); eGFR 67 ML/MIN
[2019-02-25] MEDS ORDERED: EPINEPHRINE 0.3 MG IM PRN (08:55)
[2019-02-25] MEDS ORDERED: mag hydrox/Alum hydrox/simeth 30ml oral suspension PO PRN (08:55)
[2019-02-25] MEDS ORDERED: magnesium hydroxide 30ml (MOM) UD suspension PO PRN (08:55)
[2019-02-25] MEDS ORDERED: morphine 2 MG/ML inj. syringe IV PRN ×2 (08:55)
[2019-02-25] MEDS ORDERED: ondansetron/PF 4mg/2ml inj IV PRN (08:55)
[2019-02-25] MEDS ORDERED: albuterol 2.5 MG/3 ML nebule NEB PRN (09:15)
[2019-02-25] MEDS ORDERED: ipratropium/albuterol 3ml nebule IH PRN (09:25)
[2019-02-25] MEDS: normal saline 1000ml 1,000 ML IV SCH ×2 (11:24→18:52)
--- NOTE | 2019-02-25 13:05 | NUR ---
Pt sitting up in bed eating lunch. Visitors at bedside.
[2019-02-25] MEDS: albuterol 2.5 MG/3 ML nebule NEB SCH ×2 (15:07→20:10)
[2019-02-25 15:27] VITALS: BP 125/59
--- NOTE | 2019-02-25 15:30 | NUR ---
Patient in room [facility]. I have received report from Queta MIRANDA and had the opportunity to ask questions and assume patient care. patient orientated to room and surroundings. Patient calm but very anxious about her grandaughter who she cares [facility]. According to patient her [facility] cannot be at [facility] without her there. legal services manager paged, awaiting orders.
[2019-02-25] MEDS: ibuprofen tablet 400 MG TABLET PO SCH (16:16)
--- NOTE | 2019-02-25 17:27 | NUR ---
please see social insurance specialist note with regards grandaughter. patient appears comforted that her granddaughter will stay in respite room with brother and [facility] [place] [facility]
--- NOTE | 2019-02-25 18:15 | NUR ---
Patient in room [facility]. I have received report from Jessy Villa and had the opportunity to ask questions and assume patient care. Addendum: 02/25/19 at 1957 by Sydney Awad RN Amended: Links added.
--- NOTE | 2019-02-25 19:00 | NUR ---
pt on the phone with family.
[2019-02-25 19:35] VITALS: BP 131/58
[2019-02-25] MEDS: budesonide 0.5mg/2ml UD nebule IH SCH (20:10)
--- NOTE | 2019-02-25 21:00 | NUR ---
pt c/o leg cramps. talked to hospitalist no orders received for this. pt without other complaints at this time and took hs meds.
[2019-02-25] MEDS: lisinopril 10 MG tablet PO SCH (21:28)
[2019-02-25] MEDS: topiramate 100mg tablet PO SCH (21:29)
[2019-02-25] MEDS: duloxetine 30mg CAPSULE.DR PO SCH (21:30)
[2019-02-25] MEDS: traZODone 50mg tablet PO SCH (21:30)
--- NOTE | 2019-02-25 23:00 | NUR ---
pt awake given snacks per request. no s&s of distress at this time.
[2019-02-26] VITALS: BP 123/50
--- NOTE | 2019-02-26 01:01 | NUR ---
pt resting eyes closed without changes.
[2019-02-26] MEDS: ibuprofen tablet 400 MG TABLET PO SCH ×3 (01:38→16:33)
[2019-02-26] MEDS: albuterol 2.5 MG/3 ML nebule NEB SCH ×4 (02:21→20:46)
--- NOTE | 2019-02-26 02:33 | NUR ---
pt resting eyes closed without s&s of distress at this time.
--- NOTE | 2019-02-26 04:22 | NUR ---
pt resting eyes closed without changes or s&s of distress.
[2019-02-26] MEDS: normal saline 1000ml 1,000 ML IV SCH ×2 (04:52→14:52)
[2019-02-26 05:31] LABS: BASOPHILS % (AUTO) 0.2 % (0-1); EOSINOPHILS # (AUTO) 0.1 X10'3 (0-0.9); EOSINOPHILS % (AUTO) 0.7 % (0-6); HEMATOCRIT 38.2 % (35.0-45.0); HEMOGLOBIN 12.7 g/dl (12.0-16.0); LYMPHOCYTES # (AUTO) 1.7 X10'3 (1.1-4.8); MEAN CORPUSCULAR HEMOGLOBIN 32.4 PG (27.0-31.0); MEAN CORPUSCULAR HGB CONC 33.3 g/dL (33.0-36.5); MEAN CORPUSCULAR VOLUME 97.3 FL (78-98); MONOCYTES # (AUTO) 0.7 X10'3 (0-0.9); MONOCYTES % (AUTO) 7.2 % (2-12); NEUTROPHILS # (AUTO) 6.9 X10'3 (1.8-7.7); NEUTROPHILS % (AUTO) 73.9 % (42-75); PLATELET COUNT 191 X10'3 (140-440); RED BLOOD COUNT 3.93 X10'6 (4.20-5.60); RED CELL DISTRIBUTION WIDTH 14.1 % (11.5-14.5); WHITE BLOOD COUNT 9.4 X10'3 (4.5-11.0)
[2019-02-26 05:52] LABS: ALBUMIN 2.7 G/DL (3.4-5.0); ANION GAP 9 (8-16); BLOOD UREA NITROGEN 16 MG/DL (7-18); BUN/CREATININE RATIO 21.1 (6.6-38.0); CALCIUM 8.5 MG/DL (8.5-10.1); CHLORIDE 113 MMOL/L (99-107); CREATININE 0.76 MG/DL (0.40-0.90); GLUCOSE 98 MG/DL (70-104); POTASSIUM 3.3 MMOL/L (3.5-5.1); SODIUM 146 MMOL/L (135-145); TOTAL CARBON DIOXIDE 23.8 MMOL/L (24-32); eGFR 77 ML/MIN
--- NOTE | 2019-02-26 06:32 | NUR ---
Problems reprioritized. Patient report given, questions answered & plan of care reviewed with Kourtney Villa. Addendum: 02/26/19 at 0633 by Sydney Awad RN Amended: Links added.
[2019-02-26 07:31] VITALS: BP 111/63
[2019-02-26] MEDS: budesonide 0.5mg/2ml UD nebule IH SCH ×2 (07:51→20:46)
[2019-02-26] MEDS ORDERED: non-formulary drug (Tiotropium Bromide (SPIRIVA inhaler) 1 CAP) INH SCH (08:00)
[2019-02-26] MEDS: pantoprazole 40mg Tablet.DR PO SCH (09:38)
[2019-02-26] MEDS: potassium chloride 8mEq ER tablet PO SCH (09:38)
[2019-02-26] MEDS: enoxaparin 40mg/0.4ml syringe SUBCUT SCH (09:39)
[2019-02-26] MEDS: levoFLOXACIN-Levaquin 750MG/D5 150 ML IV SCH (09:39)
[2019-02-26] MEDS: polyethylene glycol 3350 17gm powd pack PO SCH (09:39)
[2019-02-26] MEDS ORDERED: pneumococcal 23-VAL P-sac vacc 25 mcg/0.5ml vial IMVAC ONE (10:00)
[2019-02-26 10:59] VITALS: BP 116/52
[2019-02-26] MEDS ORDERED: potassium CL 10mEq/100ml bag 100 ML IV PRN (11:25)
[2019-02-26] MEDS ORDERED: potassium Cl 20 mEq SR tablet PO PRN (11:25)
[2019-02-26] MEDS: potassium Cl 20 mEq SR tablet PO PRN ×3 (11:51→22:00)
--- NOTE | 2019-02-26 16:00 | NUR ---
Paged MD Andersen for PT order.
--- NOTE | 2019-02-26 18:20 | NUR ---
Patient in room [facility]. I have received report from Kourtney Villa and had the opportunity to ask questions and assume patient care.
[2019-02-26 19:00] VITALS: BP 112/56
--- NOTE | 2019-02-26 19:07 | NUR ---
Gave report to Chantel MIRANDA.
[2019-02-26] MEDS: lactobacillus rhamnosus 10,000 MMU CELLS/CAPSULE PO SCH (21:27)
[2019-02-26] MEDS: traZODone 50mg tablet PO SCH (21:27)
[2019-02-26] MEDS: topiramate 100mg tablet PO SCH (21:28)
[2019-02-26] MEDS: lisinopril 10 MG tablet PO SCH (21:28)
[2019-02-26] MEDS: duloxetine 30mg CAPSULE.DR PO SCH (21:32)
[2019-02-27] MEDS: ibuprofen tablet 400 MG TABLET PO SCH ×2 (00:19→11:20)
[2019-02-27 00:25] VITALS: BP 103/53
[2019-02-27] MEDS: normal saline 1000ml 1,000 ML IV SCH ×2 (00:52→04:35)
[2019-02-27] MEDS: albuterol 2.5 MG/3 ML nebule NEB SCH ×2 (03:00→08:04)
[2019-02-27 05:26] LABS: BASOPHILS % (AUTO) 0.7 % (0-1); EOSINOPHILS # (AUTO) 0.2 X10'3 (0-0.9); EOSINOPHILS % (AUTO) 3.4 % (0-6); HEMATOCRIT 38.5 % (35.0-45.0); HEMOGLOBIN 12.7 g/dl (12.0-16.0); LYMPHOCYTES # (AUTO) 2.2 X10'3 (1.1-4.8); LYMPHOCYTES % (AUTO) 31.5 % (21-51); MEAN CORPUSCULAR HGB CONC 33.1 g/dL (33.0-36.5); MEAN CORPUSCULAR VOLUME 96.8 FL (78-98); MEAN PLATELET VOLUME 8.4 FL (7.4-10.4); MONOCYTES # (AUTO) 0.6 X10'3 (0-0.9); MONOCYTES % (AUTO) 8.3 % (2-12); NEUTROPHILS # (AUTO) 3.9 X10'3 (1.8-7.7); NEUTROPHILS % (AUTO) 56.1 % (42-75); PLATELET COUNT 213 X10'3 (140-440); RED BLOOD COUNT 3.97 X10'6 (4.20-5.60); RED CELL DISTRIBUTION WIDTH 14.5 % (11.5-14.5)
[2019-02-27 05:45] LABS: ALBUMIN 2.6 G/DL (3.4-5.0); ANION GAP 5 (8-16); BLOOD UREA NITROGEN 12 MG/DL (7-18); BUN/CREATININE RATIO 14.5 (6.6-38.0); CALCIUM 8.4 MG/DL (8.5-10.1); CHLORIDE 114 MMOL/L (99-107); CREATININE 0.83 MG/DL (0.40-0.90); GLUCOSE 78 MG/DL (70-104); POTASSIUM 4.6 MMOL/L (3.5-5.1); SODIUM 145 MMOL/L (135-145); TOTAL CARBON DIOXIDE 25.8 MMOL/L (24-32); eGFR 69 ML/MIN
--- NOTE | 2019-02-27 06:00 | NUR ---
Problems reprioritized. Patient report given, questions answered & plan of care reviewed with Kourtney MIRANDA.
[2019-02-27 07:00] VITALS: BP 116/74
[2019-02-27] MEDS: polyethylene glycol 3350 17gm powd pack PO SCH (08:00)
[2019-02-27] MEDS: budesonide 0.5mg/2ml UD nebule IH SCH (08:04)
[2019-02-27] MEDS ORDERED: HYDR-4383 PO (09:07)
[2019-02-27] MEDS ORDERED: LEVO750T21 PO (09:07)
[2019-02-27 11:00] VITALS: BP 104/39
[2019-02-27] MEDS: potassium chloride 8mEq ER tablet PO SCH (11:19)
[2019-02-27] MEDS: pantoprazole 40mg Tablet.DR PO SCH (11:20)
[2019-02-27] MEDS: enoxaparin 40mg/0.4ml syringe SUBCUT SCH (11:20)
[2019-02-27] MEDS: lactobacillus rhamnosus 10,000 MMU CELLS/CAPSULE PO SCH (11:20)
[2019-02-27] MEDS: levoFLOXACIN-Levaquin 750MG/D5 150 ML IV SCH (11:21)
--- NOTE | 2019-02-27 13:30 | NUR ---
Pt. prescribed hydrocodone prescription upon discharge. Verified with pt. that this pt. had no allergies to acetaminophen. She had allergies to aspirin she said.
--- NOTE | 2019-02-27 13:30 | NUR ---
Pt. left in a stable condition. Accompanied by two friends. IV dc'd pressure bandage applied, no s/sx bleeding noted. Pt. had clothing and was provided with a to go lunch. Written [place] prescription given to pt. Verified allergies with pt. See previous notes. Antibiotic medication called into [facility] [address] by community support associate. pt. aware to lease picker medications. Educated pt on PNA, medications, exercise, and when to return to the hospital. Pt. agrees to follow up with her PCP within a week. [facility] Pt[facility] to [facility] to [facility] rather than wait for partnership funded ride r/t timing and wanting to leave quickly. ID wristbands removed. Pt. left with all of her belongings.
--- NOTE | 2019-02-27 13:31 | NUR ---
PT. LEFT FLOOR.
== END 2019-02-27 14:05 | disposition home or self-care (01) | DRG 195 ==
LOC: ER 06:49 → SUR 3N 14:16
PROVIDERS: ADMIT Internal Medicine; ATTEND Internal Medicine
PROC: 3E0234Z Introduction of Serum, Toxoid and Vaccine into Muscle, Percutaneous Approach (ICD-10-PCS; principal; 2019-02-26)
DX: J18.9 Pneumonia, unspecified organism (principal); J43.9 Emphysema, unspecified; E78.00 Pure hypercholesterolemia, unspecified; F17.210 Nicotine dependence, cigarettes, uncomplicated; F20.9 Schizophrenia, unspecified; F41.0 Panic disorder [episodic paroxysmal anxiety]; G47.00 Insomnia, unspecified; I10 Essential (primary) hypertension; I25.10 Atherosclerotic heart disease of native coronary artery without angina pectoris; K21.9 Gastro-esophageal reflux disease without esophagitis; Z96.653 Presence of artificial knee joint, bilateral; B19.20 Unspecified viral hepatitis C without hepatic coma; F15.90 Other stimulant use, unspecified, uncomplicated; F32.9 Major depressive disorder, single episode, unspecified; F41.9 Anxiety disorder, unspecified; G43.909 Migraine, unspecified, not intractable, without status migrainosus; G89.29 Other chronic pain; M54.9 Dorsalgia, unspecified; Z23 Encounter for immunization; Z88.0 Allergy status to penicillin; Z88.2 Allergy status to sulfonamides; Z88.6 Allergy status to analgesic agent; Z91.040 Latex allergy status; Z91.010 Allergy to peanuts; Z88.8 Allergy status to other drugs, medicaments and biological substances; Z91.018 Allergy to other foods; Z59.0 Homelessness; Z79.899 Other long term (current) drug therapy; Z90.49 Acquired absence of other specified parts of digestive tract; Z56.0 Unemployment, unspecified; Z98.51 Tubal ligation status
CPT/HCPCS: 36415; 71045; 80048; 80053; 83605; 83880; 84484; 85025; 85610; 85730; 87040; 87081; 90732; 93005; 94640; 94760; 96374; 97116; 97161; 99285; G0378; J1650; J1956; J2270; J2930; J7030; J7626

== ENCOUNTER 2019-05-03 15:33 | Emergency (ER) | payer MEDICARE, MEDICAID ==
[~2019-05-03] VITALS: Ht 162.6 cm; Wt 79.5 kg
[~2019-05-03 15:33] MED LIST changes: +HYDR-4383 PO; -HYDR28CR14 TP; -POTA8CAP20 PO
[2019-05-03 15:58] VITALS: BP 165/62
[2019-05-03] MEDS ORDERED: ibuprofen tablet 400 MG TABLET PO ONE (17:20)
[2019-05-03] MEDS ORDERED: IBUP-1984 PO (17:29)
== END 2019-05-03 17:45 | disposition home or self-care (01) ==
LOC: ER 15:33
DX: S50.02XA Contusion of left elbow, initial encounter (principal); G43.909 Migraine, unspecified, not intractable, without status migrainosus; I25.10 Atherosclerotic heart disease of native coronary artery without angina pectoris; E80.0 Hereditary erythropoietic porphyria; I10 Essential (primary) hypertension; J44.9 Chronic obstructive pulmonary disease, unspecified; G89.29 Other chronic pain; F15.90 Other stimulant use, unspecified, uncomplicated; Z90.49 Acquired absence of other specified parts of digestive tract; Z98.890 Other specified postprocedural states; Z98.51 Tubal ligation status; Z59.0 Homelessness; Z56.0 Unemployment, unspecified; Z88.0 Allergy status to penicillin; Z88.5 Allergy status to narcotic agent; Z91.010 Allergy to peanuts; Z91.018 Allergy to other foods; Z88.2 Allergy status to sulfonamides; Z91.040 Latex allergy status; W01.198A Fall on same level from slipping, tripping and stumbling with subsequent striking against other object, initial encounter; Y93.89 Activity, other specified; Y92.89 Other specified places as the place of occurrence of the external cause; Y99.9 Unspecified external cause status
CPT/HCPCS: 73080; 99283

== ENCOUNTER 2019-09-04 17:43 | Emergency (ER) | payer MEDICARE, MEDICAID ==
[~2019-09-04] VITALS: Ht 162.6 cm; Wt 72.0 kg
[2019-09-04] MEDS ORDERED: predniSONE 20 mg tablet PO ONE (18:10)
[2019-09-04] MEDS ORDERED: ipratropium/albuterol 3ml nebule NEB ONE (18:10)
[2019-09-04 18:37] LABS: BASOPHILS # (AUTO) 0.1 X10'3 (0-0.2); BASOPHILS % (AUTO) 1.1 % (0-1); EOSINOPHILS # (AUTO) 0.3 X10'3 (0-0.9); EOSINOPHILS % (AUTO) 3.6 % (0-6); HEMATOCRIT 39.8 % (35.0-45.0); LYMPHOCYTES # (AUTO) 1.8 X10'3 (1.1-4.8); LYMPHOCYTES % (AUTO) 22.6 % (21-51); MEAN CORPUSCULAR HEMOGLOBIN 31.8 PG (27.0-31.0); MEAN CORPUSCULAR HGB CONC 32.8 g/dL (33.0-36.5); MEAN PLATELET VOLUME 8.4 FL (7.4-10.4); MONOCYTES # (AUTO) 0.6 X10'3 (0-0.9); MONOCYTES % (AUTO) 7.6 % (2-12); NEUTROPHILS # (AUTO) 5.1 X10'3 (1.8-7.7); NEUTROPHILS % (AUTO) 65.1 % (42-75); PLATELET COUNT 211 X10'3 (140-440); RED BLOOD COUNT 4.11 X10'6 (4.20-5.60); RED CELL DISTRIBUTION WIDTH 14.2 % (11.5-14.5); WHITE BLOOD COUNT 7.8 X10'3 (4.5-11.0)
[2019-09-04 18:40] LABS: ALANINE AMINOTRANSFERASE 24 U/L (12-78); ALBUMIN/GLOBULIN RATIO 0.8 (1.1-1.5); ALKALINE PHOSPHATASE 94 IU/L (46-116); ANION GAP 4 (8-16); ASPARTATE AMINO TRANSFERASE 27 U/L (10-37); BILIRUBIN,TOTAL 0.1 MG/DL (0.1-1.0); BLOOD UREA NITROGEN 15 MG/DL (7-18); BUN/CREATININE RATIO 17.4 (6.6-38.0); CALCIUM 8.3 MG/DL (8.5-10.1); CHLORIDE 112 MMOL/L (99-107); CREATININE 0.86 MG/DL (0.40-0.90); GLUCOSE 98 MG/DL (70-104); SODIUM 143 MMOL/L (135-145); TOTAL CARBON DIOXIDE 27.4 MMOL/L (24-32); TOTAL PROTEIN 6.6 G/DL (6.4-8.2); eGFR 66 ML/MIN
[2019-09-04 18:45] LABS: POTASSIUM 3.8 MMOL/L (3.5-5.1)
[2019-09-04] MEDS ORDERED: LEVO500T2 PO (19:24)
[2019-09-04] MEDS ORDERED: ALBU8HFA PO (19:24)
[2019-09-04] MEDS ORDERED: PRED20TA PO (19:24)
[2019-09-04 19:39] VITALS: BP 153/80
== END 2019-09-04 19:42 | disposition home or self-care (01) ==
LOC: ER 17:44
DX: J44.1 Chronic obstructive pulmonary disease with (acute) exacerbation (principal); I25.10 Atherosclerotic heart disease of native coronary artery without angina pectoris; E78.00 Pure hypercholesterolemia, unspecified; I10 Essential (primary) hypertension; G89.29 Other chronic pain; F41.9 Anxiety disorder, unspecified; F32.9 Major depressive disorder, single episode, unspecified; F20.9 Schizophrenia, unspecified; F15.90 Other stimulant use, unspecified, uncomplicated; Z90.49 Acquired absence of other specified parts of digestive tract; Z98.51 Tubal ligation status; Z98.890 Other specified postprocedural states; Z59.0 Homelessness; Z56.0 Unemployment, unspecified; Z88.0 Allergy status to penicillin; Z88.5 Allergy status to narcotic agent; Z91.018 Allergy to other foods; Z91.010 Allergy to peanuts; Z88.8 Allergy status to other drugs, medicaments and biological substances
CPT/HCPCS: 36415; 71045; 80053; 85025; 93005; 94640; 99285; J7512; 94760; 99284

== ENCOUNTER 2019-10-01 18:02 | Emergency (ER) | payer MEDICARE, MEDICAID ==
[~2019-10-01] VITALS: Ht 160 cm; Wt 76.4 kg
[~2019-10-01 18:02] MED LIST changes: +ALBU8HFA PO
[2019-10-01 18:19] VITALS: BP 115/75
[2019-10-01] MEDS ORDERED: ketorolac tromethamine 15mg/ml inj. IM ONE (19:15)
--- NOTE | 2019-10-01 19:20 | NUR ---
SENIOR ELECTRICAL DESIGNER TO PLACE RIGHT ANCKLE BOOT TORADOL GIVEN IM TO RIGHT DELTOID
== END 2019-10-01 19:20 | disposition home or self-care (01) ==
LOC: ER 18:03
DX: M25.571 Pain in right ankle and joints of right foot (principal); I25.10 Atherosclerotic heart disease of native coronary artery without angina pectoris; E78.00 Pure hypercholesterolemia, unspecified; I10 Essential (primary) hypertension; J45.909 Unspecified asthma, uncomplicated; J43.9 Emphysema, unspecified; G89.29 Other chronic pain; F41.9 Anxiety disorder, unspecified; F32.9 Major depressive disorder, single episode, unspecified; F20.9 Schizophrenia, unspecified; F15.90 Other stimulant use, unspecified, uncomplicated; Z86.19 Personal history of other infectious and parasitic diseases; Z90.49 Acquired absence of other specified parts of digestive tract; Z98.51 Tubal ligation status; Z98.890 Other specified postprocedural states; Z59.0 Homelessness; Z56.0 Unemployment, unspecified; Z88.0 Allergy status to penicillin; Z88.5 Allergy status to narcotic agent; Z91.010 Allergy to peanuts; Z91.018 Allergy to other foods; Z88.2 Allergy status to sulfonamides; Z88.1 Allergy status to other antibiotic agents; Z91.040 Latex allergy status; Z79.899 Other long term (current) drug therapy
CPT/HCPCS: 73610; 96372; 99284; J1885

== ENCOUNTER 2020-03-29 03:07 | Emergency (ER) | payer BC, MEDICAID ==
[~2020-03-29] VITALS: Ht 170.2 cm; Wt 72.7 kg
[~2020-03-29 03:07] MED LIST changes: -ALBU8HFA PO
[2020-03-29 03:20] VITALS: BP 166/78
[2020-03-29] MEDS ORDERED: ibuprofen tablet 400 MG TABLET PO ONE (04:00)
[2020-03-29] MEDS ORDERED: acetaminophen 325mg tablet PO ONE (04:00)
== END 2020-03-29 05:14 | disposition home or self-care (01) ==
LOC: ER 03:07
DX: M79.605 Pain in left leg (principal); M79.604 Pain in right leg; G43.909 Migraine, unspecified, not intractable, without status migrainosus; I25.10 Atherosclerotic heart disease of native coronary artery without angina pectoris; E78.00 Pure hypercholesterolemia, unspecified; I10 Essential (primary) hypertension; J44.9 Chronic obstructive pulmonary disease, unspecified; G89.29 Other chronic pain; F41.9 Anxiety disorder, unspecified; F20.9 Schizophrenia, unspecified; F32.9 Major depressive disorder, single episode, unspecified; Z90.49 Acquired absence of other specified parts of digestive tract; Z98.51 Tubal ligation status; Z98.890 Other specified postprocedural states; F15.90 Other stimulant use, unspecified, uncomplicated; Z59.0 Homelessness; Z56.0 Unemployment, unspecified; Z86.19 Personal history of other infectious and parasitic diseases; Z88.0 Allergy status to penicillin; Z88.2 Allergy status to sulfonamides; Z79.2 Long term (current) use of antibiotics; Z88.8 Allergy status to other drugs, medicaments and biological substances; Z79.899 Other long term (current) drug therapy
CPT/HCPCS: 99283

== ENCOUNTER 2020-04-22 07:40 | Emergency (ER) | payer BC, MEDICAID ==
[~2020-04-22] VITALS: Ht 154.9 cm; Wt 85.0 kg
[2020-04-22] MEDS ORDERED: acetaminophen 325mg tablet PO ONE (08:00)
[2020-04-22] MEDS ORDERED: ketorolac tromethamine 15mg/ml inj. IM ONE (08:00)
[2020-04-22 09:31] VITALS: BP 159/96
== END 2020-04-22 09:39 | disposition home or self-care (01) ==
LOC: ER 07:40
DX: M79.604 Pain in right leg (principal); M25.551 Pain in right hip; M25.561 Pain in right knee; G43.909 Migraine, unspecified, not intractable, without status migrainosus; I25.10 Atherosclerotic heart disease of native coronary artery without angina pectoris; E78.00 Pure hypercholesterolemia, unspecified; I10 Essential (primary) hypertension; J45.909 Unspecified asthma, uncomplicated; J43.9 Emphysema, unspecified; G89.29 Other chronic pain; F15.90 Other stimulant use, unspecified, uncomplicated; Z90.49 Acquired absence of other specified parts of digestive tract; Z98.51 Tubal ligation status; Z98.890 Other specified postprocedural states; Z88.0 Allergy status to penicillin; Z88.2 Allergy status to sulfonamides; Z88.1 Allergy status to other antibiotic agents; Z91.010 Allergy to peanuts; Z91.040 Latex allergy status; Z91.018 Allergy to other foods; Z79.899 Other long term (current) drug therapy; Z56.0 Unemployment, unspecified; Z59.0 Homelessness
CPT/HCPCS: 73502; 73560; 96372; 99284; J1885

== ENCOUNTER 2020-06-10 08:54 | Emergency (ER) | payer BC, MEDICAID ==
[~2020-06-10] VITALS: Ht 160 cm; Wt 75.9 kg
[2020-06-10] MEDS ORDERED: NEOM14.210 TP (09:53)
[2020-06-10 10:43] VITALS: BP 156/91
== END 2020-06-10 09:48 | disposition home or self-care (01) ==
LOC: ER 08:55
DX: S93.401A Sprain of unspecified ligament of right ankle, initial encounter (principal); R21 Rash and other nonspecific skin eruption; M79.671 Pain in right foot; G43.909 Migraine, unspecified, not intractable, without status migrainosus; I25.10 Atherosclerotic heart disease of native coronary artery without angina pectoris; E78.00 Pure hypercholesterolemia, unspecified; I10 Essential (primary) hypertension; J43.9 Emphysema, unspecified; G89.29 Other chronic pain; F41.9 Anxiety disorder, unspecified; F32.9 Major depressive disorder, single episode, unspecified; F20.9 Schizophrenia, unspecified; F15.90 Other stimulant use, unspecified, uncomplicated; Z86.19 Personal history of other infectious and parasitic diseases; Z90.49 Acquired absence of other specified parts of digestive tract; Z90.89 Acquired absence of other organs; Z98.51 Tubal ligation status; Z98.890 Other specified postprocedural states; Z59.0 Homelessness; Z56.0 Unemployment, unspecified; Z88.0 Allergy status to penicillin; Z88.2 Allergy status to sulfonamides; Z88.1 Allergy status to other antibiotic agents; Z91.040 Latex allergy status; Z91.010 Allergy to peanuts; Z91.018 Allergy to other foods; Z88.5 Allergy status to narcotic agent; Z79.2 Long term (current) use of antibiotics; Z79.899 Other long term (current) drug therapy; W50.2XXA Accidental twist by another person, initial encounter; Y93.89 Activity, other specified; Y92.89 Other specified places as the place of occurrence of the external cause; Y99.8 Other external cause status
CPT/HCPCS: 73600; 73610; 99284

== ENCOUNTER 2020-07-09 18:49 | Emergency (ER) | payer BC, MEDICAID ==
[~2020-07-09] VITALS: Ht 160 cm; Wt 75.0 kg
[~2020-07-09 18:49] MED LIST changes: +NEOM14.210 TP
[2020-07-09 19:10] LABS: BASOPHILS % (AUTO) 0.2 % (0-1); EOSINOPHILS # (AUTO) 0.2 X10'3 (0-0.9); EOSINOPHILS % (AUTO) 1.5 % (0-6); HEMATOCRIT 48.3 % (35.0-45.0); HEMOGLOBIN 15.6 g/dl (12.0-16.0); LYMPHOCYTES # (AUTO) 2.3 X10'3 (1.1-4.8); LYMPHOCYTES % (AUTO) 15.3 % (21-51); MEAN CORPUSCULAR HEMOGLOBIN 31.3 PG (27.0-31.0); MEAN CORPUSCULAR HGB CONC 32.4 g/dL (33.0-36.5); MEAN CORPUSCULAR VOLUME 96.6 FL (78-98); MEAN PLATELET VOLUME 8.4 FL (7.4-10.4); MONOCYTES # (AUTO) 1.2 X10'3 (0-0.9); MONOCYTES % (AUTO) 8.1 % (2-12); NEUTROPHILS # (AUTO) 11.1 X10'3 (1.8-7.7); NEUTROPHILS % (AUTO) 74.9 % (42-75); PLATELET COUNT 273 X10'3 (140-440); RED BLOOD COUNT 4.99 X10'6 (4.20-5.60); RED CELL DISTRIBUTION WIDTH 14.1 % (11.5-14.5); WHITE BLOOD COUNT 14.9 X10'3 (4.5-11.0)
[2020-07-09 19:20] LABS: ALANINE AMINOTRANSFERASE 26 U/L (12-78); ALBUMIN 3.1 G/DL (3.4-5.0); ALBUMIN/GLOBULIN RATIO 0.7 (1.1-1.5); ALKALINE PHOSPHATASE 96 IU/L (46-116); ANION GAP 8 (8-16); ASPARTATE AMINO TRANSFERASE 18 U/L (10-37); BILIRUBIN,TOTAL 0.7 MG/DL (0.1-1.0); BLOOD UREA NITROGEN 16 MG/DL (7-18); CALCIUM 8.7 MG/DL (8.5-10.1); CHLORIDE 105 MMOL/L (99-107); CREATININE 0.89 MG/DL (0.40-0.90); GLUCOSE 112 MG/DL (70-104); POTASSIUM 4.3 MMOL/L (3.5-5.1); SODIUM 139 MMOL/L (135-145); TOTAL CARBON DIOXIDE 26.3 MMOL/L (24-32); TOTAL PROTEIN 7.3 G/DL (6.4-8.2); eGFR 63 ML/MIN
[2020-07-09] MEDS ORDERED: iohexol 350MG/ML 100ml bottle IV ONE (19:48)
--- NOTE | 2020-07-09 20:06 | NUR ---
currently at bedside.
[2020-07-09] MEDS ORDERED: albuterol 2.5 MG/3 ML nebule CONTNEB PRN (20:10)
[2020-07-09] MEDS ORDERED: pantoprazole 40 MG vial IV ONE (20:10)
[2020-07-09] MEDS ORDERED: famotidine/PF 10 mg/ml inj IV ONE (20:10)
[2020-07-09] MEDS ORDERED: ciprofloxacin lact 400MG/200ML 200 ML IV ONE (20:50)
--- NOTE | 2020-07-09 21:20 | NUR ---
Breathing tx currently being administered. Pt resting.
[2020-07-09] MEDS ORDERED: CIP750T PO (21:54)
[2020-07-09] MEDS ORDERED: methylPREDNISolone sod succ 125mg/2ml vial IV ONE (21:55)
[2020-07-09] MEDS ORDERED: triamcinolone acetonide 40mg/ml inj IM ONE (21:55)
--- NOTE | 2020-07-09 22:08 | NUR ---
Pt observed to be sleeping with observed chest rise and fall. Easily arousable.
--- NOTE | 2020-07-09 22:10 | NUR ---
[facility]re[facility] called for pt, eta is 25 mins. Pt aware.
[2020-07-09 22:23] VITALS: BP 116/68
== END 2020-07-09 22:22 | disposition home or self-care (01) ==
LOC: ER 18:50
DX: J44.1 Chronic obstructive pulmonary disease with (acute) exacerbation (principal); R06.02 Shortness of breath; J02.9 Acute pharyngitis, unspecified; G43.909 Migraine, unspecified, not intractable, without status migrainosus; I25.10 Atherosclerotic heart disease of native coronary artery without angina pectoris; E78.00 Pure hypercholesterolemia, unspecified; I10 Essential (primary) hypertension; G89.29 Other chronic pain; F41.9 Anxiety disorder, unspecified; F32.9 Major depressive disorder, single episode, unspecified; F20.9 Schizophrenia, unspecified; F15.90 Other stimulant use, unspecified, uncomplicated; Z86.19 Personal history of other infectious and parasitic diseases; Z90.89 Acquired absence of other organs; Z90.49 Acquired absence of other specified parts of digestive tract; Z98.890 Other specified postprocedural states; Z98.51 Tubal ligation status; Z56.0 Unemployment, unspecified; Z59.0 Homelessness; Z88.0 Allergy status to penicillin; Z91.010 Allergy to peanuts; Z91.018 Allergy to other foods; Z88.1 Allergy status to other antibiotic agents; Z91.040 Latex allergy status; Z88.5 Allergy status to narcotic agent; Z79.2 Long term (current) use of antibiotics; Z79.899 Other long term (current) drug therapy
CPT/HCPCS: 36415; 71045; 71275; 80053; 83880; 84145; 85025; 93005; 94640; 94644; 96365; 96372; 96375; 99285; C9113; J0744; J2930; J3301; J3490; Q9967; 94760; A7015

== ENCOUNTER 2020-09-04 16:25 | Emergency (ER) | payer BC, MEDICAID ==
[~2020-09-04] VITALS: Ht 160 cm; Wt 76.8 kg
[2020-09-04] MEDS ORDERED: dexamethasone sod phosphate 10mg/ml inj IV STA (18:22)
[2020-09-04 18:40] VITALS: BP 136/76
== END 2020-09-04 18:48 | disposition home or self-care (01) ==
LOC: ER 16:25
DX: T78.1XXA Other adverse food reactions, not elsewhere classified, initial encounter (principal); R22.0 Localized swelling, mass and lump, head; G43.909 Migraine, unspecified, not intractable, without status migrainosus; I25.10 Atherosclerotic heart disease of native coronary artery without angina pectoris; E78.00 Pure hypercholesterolemia, unspecified; I10 Essential (primary) hypertension; J44.9 Chronic obstructive pulmonary disease, unspecified; G89.29 Other chronic pain; F15.90 Other stimulant use, unspecified, uncomplicated; Z86.19 Personal history of other infectious and parasitic diseases; Z98.890 Other specified postprocedural states; Z90.49 Acquired absence of other specified parts of digestive tract; Z98.51 Tubal ligation status; Z56.0 Unemployment, unspecified; Z59.0 Homelessness; Z79.899 Other long term (current) drug therapy; Z99.2 Dependence on renal dialysis; Z88.0 Allergy status to penicillin; Z88.1 Allergy status to other antibiotic agents; Z88.2 Allergy status to sulfonamides; Z88.8 Allergy status to other drugs, medicaments and biological substances; Z91.018 Allergy to other foods; Z91.010 Allergy to peanuts; Z91.040 Latex allergy status; X58.XXXA Exposure to other specified factors, initial encounter
CPT/HCPCS: 96374; 99284; J1100

== ENCOUNTER 2020-09-14 12:25 | Emergency (ER) | payer BC, MEDICAID ==
[~2020-09-14] VITALS: Ht 160 cm; Wt 77.0 kg
[2020-09-14] MEDS ORDERED: diphenhydrAMINE 50 mg/ml inj IV ONE (12:35)
[2020-09-14] MEDS ORDERED: LORazepam 2 mg/ml vial IV ONE ×2 (12:35→14:00)
[2020-09-14] MEDS ORDERED: metoclopramide 5 mg/ml inj IV ONE (12:35)
[2020-09-14] MEDS ORDERED: normal saline 1000ML IV soln IVB ONE (12:35)
[2020-09-14] MEDS ORDERED: meclizine 12.5mg tablet PO ONE (12:45)
[2020-09-14 13:22] LABS: BASOPHILS % (AUTO) 0.5 % (0-1); EOSINOPHILS # (AUTO) 0.1 X10'3 (0-0.9); EOSINOPHILS % (AUTO) 2.2 % (0-6); HEMATOCRIT 45.3 % (35.0-45.0); HEMOGLOBIN 14.6 g/dl (12.0-16.0); LYMPHOCYTES # (AUTO) 0.9 X10'3 (1.1-4.8); MEAN CORPUSCULAR HEMOGLOBIN 30.9 PG (27.0-31.0); MEAN CORPUSCULAR HGB CONC 32.3 g/dL (33.0-36.5); MEAN CORPUSCULAR VOLUME 95.6 FL (78-98); MEAN PLATELET VOLUME 8.1 FL (7.4-10.4); MONOCYTES # (AUTO) 0.4 X10'3 (0-0.9); MONOCYTES % (AUTO) 7.3 % (2-12); NEUTROPHILS # (AUTO) 4.1 X10'3 (1.8-7.7); PLATELET COUNT 247 X10'3 (140-440); RED BLOOD COUNT 4.74 X10'6 (4.20-5.60); RED CELL DISTRIBUTION WIDTH 14.2 % (11.5-14.5); WHITE BLOOD COUNT 5.5 X10'3 (4.5-11.0)
[2020-09-14 13:32] LABS: ALANINE AMINOTRANSFERASE 27 U/L (12-78); ALBUMIN 2.9 G/DL (3.4-5.0); ALBUMIN/GLOBULIN RATIO 0.8 (1.1-1.5); ALKALINE PHOSPHATASE 87 IU/L (46-116); ANION GAP 9 (8-16); ASPARTATE AMINO TRANSFERASE 27 U/L (10-37); BILIRUBIN,TOTAL 0.5 MG/DL (0.1-1.0); BLOOD UREA NITROGEN 14 MG/DL (7-18); BUN/CREATININE RATIO 20.9 (6.6-38.0); CALCIUM 8.7 MG/DL (8.5-10.1); CHLORIDE 112 MMOL/L (99-107); CREATININE 0.67 MG/DL (0.40-0.90); GLUCOSE 88 MG/DL (70-104); POTASSIUM 3.9 MMOL/L (3.5-5.1); SODIUM 145 MMOL/L (135-145); TOTAL CARBON DIOXIDE 23.9 MMOL/L (24-32); TOTAL PROTEIN 6.7 G/DL (6.4-8.2); eGFR 88 ML/MIN
[2020-09-14] MEDS ORDERED: MECL-159 PO (13:57)
--- NOTE | 2020-09-14 16:54 | NUR ---
[facility] CALLED, 1TO 1.5 HOURS, TO BRING TO [facility] ROOM 22. CAB WILL CALL IN TO ER WHEN THERE
[2020-09-14 17:01] VITALS: BP 136/74
== END 2020-09-14 17:17 | disposition home or self-care (01) ==
LOC: ER 12:26
DX: R42 Dizziness and giddiness (principal); R11.2 Nausea with vomiting, unspecified; G43.909 Migraine, unspecified, not intractable, without status migrainosus; I25.10 Atherosclerotic heart disease of native coronary artery without angina pectoris; E78.00 Pure hypercholesterolemia, unspecified; I10 Essential (primary) hypertension; J44.9 Chronic obstructive pulmonary disease, unspecified; G89.29 Other chronic pain; F41.9 Anxiety disorder, unspecified; F32.9 Major depressive disorder, single episode, unspecified; F20.9 Schizophrenia, unspecified; F15.90 Other stimulant use, unspecified, uncomplicated; Z90.49 Acquired absence of other specified parts of digestive tract; Z98.51 Tubal ligation status; Z98.890 Other specified postprocedural states; Z59.0 Homelessness; Z56.0 Unemployment, unspecified; Z88.2 Allergy status to sulfonamides; Z88.5 Allergy status to narcotic agent; Z91.010 Allergy to peanuts; Z91.018 Allergy to other foods; Z79.899 Other long term (current) drug therapy; Z91.040 Latex allergy status
CPT/HCPCS: 36415; 80053; 85025; 93005; 96374; 96375; 99284; J1200; J2060; J2765; J7030; J8597

== ENCOUNTER 2020-09-17 14:54 | Emergency (ER) | payer BC, MEDICAID ==
[~2020-09-17] VITALS: Ht 160 cm; Wt 74.1 kg
[~2020-09-17 14:54] MED LIST changes: +MECL-159 PO
[2020-09-17 15:32] VITALS: BP 116/77
[2020-09-17] MEDS ORDERED: lactulose 20gm/30ml cup PO ONE (16:10)
[2020-09-17] MEDS ORDERED: POLY17PO10 PO (16:26)
[2020-09-17] MEDS ORDERED: ONDA-103 PO (16:26)
[2020-09-17 16:32] LABS: CLARITY,URINE CLOUDY (Clear); COLOR,URINE YELLOW (Yellow); GLUCOSE, URINE NEGATIVE (Neg); KETONES,URINE TRACE mg/dl (Neg); LEUKOCYTE ESTERASE ,URINE SMALL (Neg); NITRITES, URINE NEGATIVE (Neg); OCCULT BLOOD,URINE NEGATIVE (Neg); PH,URINE 6.5 (4.8-8.0); PROTEIN,URINE 100 mg/dl (Neg)
[2020-09-17 16:37] LABS: UA COLLECTION TYPE STRAIGHT CATH; URINE AMPHETAMINE SCREEN NEGATIVE (Neg); URINE BARBITUATE SCREEN NEGATIVE (Neg); URINE BENZODIAZEPINES SCREEN NEGATIVE (Neg); URINE CANNABINOID SCREEN NEGATIVE (Neg); URINE COCAINE SCREEN NEGATIVE (Neg); URINE METHADONE SCREEN NEGATIVE (Neg); URINE OPIATE SCREEN NEGATIVE (Neg); URINE PHENCYCLIDINE SCREEN NEGATIVE (Neg)
[2020-09-17 16:43] LABS: MUCUS STRANDS FEW /LPF (Neg); SQUAMOUS EPITHELIAL CELL,UR MODERATE /LPF (FEW)
[2020-09-17 16:44] LABS: BACTERIA,URINE FEW /HPF (Neg); HYALINE CASTS 0-3 /LPF (NEGATIVE); RBC,URINE 0-2 /HPF (0-2); RENAL CELLS, URINE FEW /HPF; TRANSITIONAL EPI CELLS,URINE FEW /HPF; WBC,URINE 0-4 /HPF (0-4)
== END 2020-09-17 17:04 | disposition home or self-care (01) ==
LOC: ER 14:54
DX: K59.00 Constipation, unspecified (principal); R10.30 Lower abdominal pain, unspecified; G43.909 Migraine, unspecified, not intractable, without status migrainosus; I25.10 Atherosclerotic heart disease of native coronary artery without angina pectoris; E78.00 Pure hypercholesterolemia, unspecified; I10 Essential (primary) hypertension; J43.9 Emphysema, unspecified; G89.29 Other chronic pain; F41.9 Anxiety disorder, unspecified; F32.9 Major depressive disorder, single episode, unspecified; F15.90 Other stimulant use, unspecified, uncomplicated; Z86.19 Personal history of other infectious and parasitic diseases; Z20.9 Contact with and (suspected) exposure to unspecified communicable disease; Z90.89 Acquired absence of other organs; Z90.49 Acquired absence of other specified parts of digestive tract; Z98.890 Other specified postprocedural states; Z98.51 Tubal ligation status; Z59.0 Homelessness; Z56.0 Unemployment, unspecified; Z88.0 Allergy status to penicillin; Z91.010 Allergy to peanuts; Z91.018 Allergy to other foods; Z88.2 Allergy status to sulfonamides; Z88.5 Allergy status to narcotic agent; Z91.040 Latex allergy status; Z79.899 Other long term (current) drug therapy
CPT/HCPCS: 74018; 80305; 81001; 87077; 87088; 87186; 99284

== ENCOUNTER 2020-11-18 12:50 | Emergency (ER) | payer BC, MEDICAID ==
[~2020-11-18] VITALS: Ht 152.4 cm; Wt 72.7 kg
[~2020-11-18 12:50] MED LIST changes: +ONDA-103 PO
[2020-11-18 13:41] VITALS: BP 120/56
--- NOTE | 2020-11-18 15:28 | NUR ---
PATIENT WAS ABLE TO AMBULATE FROM W/C TO BATHROOM IN LOBBY WITHOUT ANY ASSISTANCE.
[2020-11-18] MEDS ORDERED: ACET650T12 PO (16:26)
== END 2020-11-18 17:18 | disposition home or self-care (01) ==
LOC: ER 12:51
DX: M25.562 Pain in left knee (principal); G89.29 Other chronic pain; G43.909 Migraine, unspecified, not intractable, without status migrainosus; I25.10 Atherosclerotic heart disease of native coronary artery without angina pectoris; E78.00 Pure hypercholesterolemia, unspecified; I10 Essential (primary) hypertension; J45.909 Unspecified asthma, uncomplicated; J43.9 Emphysema, unspecified; F41.9 Anxiety disorder, unspecified; F20.9 Schizophrenia, unspecified; F15.90 Other stimulant use, unspecified, uncomplicated; Z86.19 Personal history of other infectious and parasitic diseases; Z90.89 Acquired absence of other organs; Z90.49 Acquired absence of other specified parts of digestive tract; Z98.890 Other specified postprocedural states; Z98.51 Tubal ligation status; Z56.0 Unemployment, unspecified; Z59.0 Homelessness; Z88.0 Allergy status to penicillin; Z91.040 Latex allergy status; Z91.010 Allergy to peanuts; Z91.018 Allergy to other foods; Z88.8 Allergy status to other drugs, medicaments and biological substances; Z79.899 Other long term (current) drug therapy
CPT/HCPCS: 73080; 73564; 73610; 99284

== ENCOUNTER 2021-04-20 09:34 | Emergency (ER) | payer BC, MEDICAID ==
[~2021-04-20] VITALS: Ht 165.1 cm; Wt 63.6 kg
[~2021-04-20 09:34] MED LIST changes: +ACET650T12 PO
[2021-04-20 09:40] VITALS: BP 123/95
== END 2021-04-20 17:11 | disposition left against medical advice (07) ==
LOC: ER 09:35
DX: M25.562 Pain in left knee (principal); Z53.21 Procedure and treatment not carried out due to patient leaving prior to being seen by health care provider

== ENCOUNTER 2021-07-04 05:14 | Emergency (ER) | payer BC, MEDICAID ==
[~2021-07-04] VITALS: Ht 170.2 cm; Wt 66.4 kg
[2021-07-04 05:15] VITALS: BP 168/78
[2021-07-04] MEDS ORDERED: HYDROcodone/acetaminophen 10/325mg tab PO ONE (05:45)
[2021-07-04] MEDS ORDERED: IBUP-1986 PO (05:46)
== END 2021-07-04 05:50 | disposition home or self-care (01) ==
LOC: ER 05:15
DX: M79.671 Pain in right foot (principal); G89.29 Other chronic pain; M19.90 Unspecified osteoarthritis, unspecified site; G43.909 Migraine, unspecified, not intractable, without status migrainosus; I25.10 Atherosclerotic heart disease of native coronary artery without angina pectoris; E78.00 Pure hypercholesterolemia, unspecified; I10 Essential (primary) hypertension; J45.909 Unspecified asthma, uncomplicated; J43.9 Emphysema, unspecified; F17.200 Nicotine dependence, unspecified, uncomplicated; F15.90 Other stimulant use, unspecified, uncomplicated; Z87.19 Personal history of other diseases of the digestive system; Z90.49 Acquired absence of other specified parts of digestive tract; Z98.51 Tubal ligation status; Z56.0 Unemployment, unspecified; Z59.00 Homelessness unspecified; Z88.0 Allergy status to penicillin; Z91.018 Allergy to other foods; Z91.010 Allergy to peanuts; Z88.2 Allergy status to sulfonamides; Z88.1 Allergy status to other antibiotic agents; Z91.040 Latex allergy status; Z79.2 Long term (current) use of antibiotics; Z79.899 Other long term (current) drug therapy
CPT/HCPCS: 99283

== ENCOUNTER 2021-09-30 09:08 | Emergency (ER) | payer BC, MEDICAID ==
[~2021-09-30] VITALS: Ht 160 cm; Wt 63.2 kg
[~2021-09-30 09:08] MED LIST changes: +IBUP-1986 PO
--- NOTE | 2021-09-30 09:36 | NUR ---
Going to [place] with roof service technician.
[2021-09-30 10:34] VITALS: BP 134/86
== END 2021-09-30 10:39 | disposition home or self-care (01) ==
LOC: ER 09:09
DX: S60.211A Contusion of right wrist, initial encounter (principal); M25.531 Pain in right wrist; M54.2 Cervicalgia; G43.909 Migraine, unspecified, not intractable, without status migrainosus; I25.10 Atherosclerotic heart disease of native coronary artery without angina pectoris; E78.00 Pure hypercholesterolemia, unspecified; I10 Essential (primary) hypertension; J43.9 Emphysema, unspecified; G89.29 Other chronic pain; F41.9 Anxiety disorder, unspecified; F32.A Depression, unspecified; F20.9 Schizophrenia, unspecified; F15.90 Other stimulant use, unspecified, uncomplicated; Z86.19 Personal history of other infectious and parasitic diseases; Z90.89 Acquired absence of other organs; Z90.49 Acquired absence of other specified parts of digestive tract; Z98.890 Other specified postprocedural states; Z98.51 Tubal ligation status; Z56.0 Unemployment, unspecified; Z59.00 Homelessness unspecified; Z88.0 Allergy status to penicillin; Z88.8 Allergy status to other drugs, medicaments and biological substances; Z91.010 Allergy to peanuts; Z88.2 Allergy status to sulfonamides; Z91.040 Latex allergy status; Z88.5 Allergy status to narcotic agent; Z79.899 Other long term (current) drug therapy; Y08.89XA Assault by other specified means, initial encounter; Y93.89 Activity, other specified; Y92.89 Other specified places as the place of occurrence of the external cause; Y99.8 Other external cause status
CPT/HCPCS: 70450; 70486; 72125; 73110; 93005; 99284

== ENCOUNTER 2021-10-09 13:12 | Emergency (ER) | payer BC, MEDICAID ==
[~2021-10-09] VITALS: Ht 160 cm; Wt 56.0 kg
[2021-10-09 13:33] VITALS: BP 122/71
[2021-10-09 14:42] LABS: CLARITY,URINE CLOUDY (Clear); GLUCOSE, URINE NEGATIVE (Neg); KETONES,URINE 15 mg/dl (Neg); LEUKOCYTE ESTERASE ,URINE TRACE (Neg); NITRITES, URINE POSITIVE (Neg); OCCULT BLOOD,URINE NEGATIVE (Neg); PH,URINE 5.5 (4.8-8.0); PROTEIN,URINE 30 mg/dl (Neg)
[2021-10-09 14:47] LABS: COLOR,URINE DARK YELLOW (Yellow); UA COLLECTION TYPE CLN CATCH MIDSTREAM
[2021-10-09 14:48] LABS: BACTERIA,URINE 4+ /HPF (Neg); MUCUS STRANDS MODERATE /LPF (Neg); RBC,URINE NONE SEEN /HPF (0-2); SQUAMOUS EPITHELIAL CELL,UR MODERATE /LPF (FEW); WBC,URINE 50-100 /HPF (0-4)
[2021-10-09 14:49] LABS: WBC CLUMPS,URINE FEW /HPF (NEGATIVE)
[2021-10-09] MEDS ORDERED: CEPH250T PO (15:49)
== END 2021-10-09 16:32 | disposition home or self-care (01) ==
LOC: ER 13:13
DX: N39.0 Urinary tract infection, site not specified (principal); M17.32 Unilateral post-traumatic osteoarthritis, left knee; I11.9 Hypertensive heart disease without heart failure; J43.9 Emphysema, unspecified; G89.29 Other chronic pain; M54.9 Dorsalgia, unspecified; F31.9 Bipolar disorder, unspecified; F20.9 Schizophrenia, unspecified; Z59.00 Homelessness unspecified; Z56.0 Unemployment, unspecified; Z88.0 Allergy status to penicillin; Z88.8 Allergy status to other drugs, medicaments and biological substances; Z91.018 Allergy to other foods; Z88.5 Allergy status to narcotic agent; Z91.010 Allergy to peanuts; Z88.2 Allergy status to sulfonamides; Z88.1 Allergy status to other antibiotic agents
CPT/HCPCS: 73564; 81001; 87077; 87088; 87186; 99284

== ENCOUNTER 2021-10-19 12:05 | Emergency (ER) | payer BC, MEDICAID ==
[~2021-10-19] VITALS: Ht 160 cm; Wt 65.9 kg
[2021-10-19 12:17] VITALS: BP 98/79
[2021-10-19] MEDS ORDERED: ibuprofen tablet 400 MG TABLET PO ONE (13:45)
[2021-10-19] MEDS ORDERED: IBUP-1986 PO (13:45)
== END 2021-10-19 14:04 | disposition home or self-care (01) ==
LOC: ER 12:05
DX: S80.02XA Contusion of left knee, initial encounter (principal); M25.511 Pain in right shoulder; M54.50 Low back pain, unspecified; G43.909 Migraine, unspecified, not intractable, without status migrainosus; I25.10 Atherosclerotic heart disease of native coronary artery without angina pectoris; E78.00 Pure hypercholesterolemia, unspecified; I10 Essential (primary) hypertension; J43.9 Emphysema, unspecified; G89.29 Other chronic pain; F15.90 Other stimulant use, unspecified, uncomplicated; Z87.19 Personal history of other diseases of the digestive system; Z90.49 Acquired absence of other specified parts of digestive tract; Z98.51 Tubal ligation status; Z56.0 Unemployment, unspecified; Z59.00 Homelessness unspecified; Z79.899 Other long term (current) drug therapy; Z88.0 Allergy status to penicillin; Z88.1 Allergy status to other antibiotic agents; Z88.8 Allergy status to other drugs, medicaments and biological substances; Z91.018 Allergy to other foods; Z91.010 Allergy to peanuts; Z88.2 Allergy status to sulfonamides; Z91.040 Latex allergy status; W01.0XXA Fall on same level from slipping, tripping and stumbling without subsequent striking against object, initial encounter; Y93.01 Activity, walking, marching and hiking; Y92.89 Other specified places as the place of occurrence of the external cause; Y99.8 Other external cause status
CPT/HCPCS: 99282

== ENCOUNTER 2021-10-28 14:24 | Emergency (ER) | payer BC, MEDICAID ==
[~2021-10-28] VITALS: Ht 160 cm; Wt 65.9 kg
[2021-10-28 15:48] LABS: CLARITY,URINE CLOUDY (Clear); COLOR,URINE YELLOW (Yellow); GLUCOSE, URINE 100 mg/dl (Neg); KETONES,URINE TRACE mg/dl (Neg); LEUKOCYTE ESTERASE ,URINE SMALL (Neg); NITRITES, URINE POSITIVE (Neg); OCCULT BLOOD,URINE NEGATIVE (Neg); PH,URINE 5.5 (4.8-8.0); PROTEIN,URINE 30 mg/dl (Neg)
[2021-10-28 15:51] LABS: UA COLLECTION TYPE CLN CATCH MIDSTREAM
[2021-10-28 16:00] LABS: BASOPHILS % (AUTO) 0.4 % (0-1); EOSINOPHILS % (AUTO) 0.6 % (0-6); HEMATOCRIT 47.4 % (35.0-45.0); HEMOGLOBIN 14.8 g/dl (12.0-16.0); LYMPHOCYTES # (AUTO) 0.9 X10'3 (1.1-4.8); LYMPHOCYTES % (AUTO) 12.1 % (21-51); MEAN CORPUSCULAR HEMOGLOBIN 29.8 PG (27.0-31.0); MEAN CORPUSCULAR HGB CONC 31.3 g/dL (33.0-36.5); MEAN CORPUSCULAR VOLUME 95.2 FL (78-98); MEAN PLATELET VOLUME 8.8 FL (7.4-10.4); MONOCYTES # (AUTO) 0.5 X10'3 (0-0.9); MONOCYTES % (AUTO) 6.4 % (2-12); NEUTROPHILS # (AUTO) 6.2 X10'3 (1.8-7.7); NEUTROPHILS % (AUTO) 80.5 % (42-75); PLATELET COUNT 254 X10'3 (140-440); RED BLOOD COUNT 4.98 X10'6 (4.20-5.60); RED CELL DISTRIBUTION WIDTH 15.8 % (11.5-14.5); WHITE BLOOD COUNT 7.7 X10'3 (4.5-11.0)
[2021-10-28 16:01] LABS: ALANINE AMINOTRANSFERASE 19 U/L (12-78); ALBUMIN 3.5 G/DL (3.4-5.0); ALBUMIN/GLOBULIN RATIO 0.9 (1.1-1.5); ALKALINE PHOSPHATASE 94 IU/L (46-116); ANION GAP 10 (8-16); ASPARTATE AMINO TRANSFERASE 23 U/L (10-37); BILIRUBIN,TOTAL 0.4 MG/DL (0.1-1.0); BLOOD UREA NITROGEN 30 MG/DL (7-18); BUN/CREATININE RATIO 21.1 (6.6-38.0); CHLORIDE 110 MMOL/L (99-107); CREATININE 1.42 MG/DL (0.40-0.90); GLUCOSE 128 MG/DL (70-104); LIPASE 60 U/L (73-393); POTASSIUM 3.1 MMOL/L (3.5-5.1); SODIUM 146 MMOL/L (135-145); TOTAL CARBON DIOXIDE 25.6 MMOL/L (24-32); TOTAL PROTEIN 7.5 G/DL (6.4-8.2); eGFR 37 ML/MIN
[2021-10-28 16:22] LABS: BACTERIA,URINE 2+ /HPF (Neg)
[2021-10-28 16:24] LABS: MUCUS STRANDS MODERATE /LPF (Neg); RBC,URINE 0-2 /HPF (0-2); SQUAMOUS EPITHELIAL CELL,UR MODERATE /LPF (FEW)
[2021-10-28] MEDS ORDERED: ondansetron 4mg rapidly disintigrating tab PO STA (16:37)
[2021-10-28] MEDS ORDERED: ONDA4TAB12 PO (16:37)
[2021-10-28] MEDS ORDERED: CEPH250T PO (16:37)
[2021-10-28] MEDS ORDERED: LIDOcaine Viscous 15ml cup MM ONE (16:40)
[2021-10-28] MEDS ORDERED: sucralfate 1 gm tablet PO ONE (16:40)
[2021-10-28] MEDS ORDERED: mag hydrox/Alum hydrox/simeth 30ml oral suspension PO ONE (16:40)
[2021-10-28] MEDS ORDERED: cephalexin 250mg capsule PO ONE (16:40)
[2021-10-28 17:23] VITALS: BP 102/80
[2021-10-28 17:23] LABS: URINE AMPHETAMINE SCREEN POSITIVE (Neg); URINE BARBITUATE SCREEN NEGATIVE (Neg); URINE BENZODIAZEPINES SCREEN NEGATIVE (Neg); URINE CANNABINOID SCREEN NEGATIVE (Neg); URINE COCAINE SCREEN NEGATIVE (Neg); URINE METHADONE SCREEN NEGATIVE (Neg); URINE OPIATE SCREEN NEGATIVE (Neg); URINE PHENCYCLIDINE SCREEN NEGATIVE (Neg)
== END 2021-10-28 17:55 | disposition home or self-care (01) ==
LOC: ER 14:24
DX: N39.0 Urinary tract infection, site not specified (principal); R11.0 Nausea; R30.0 Dysuria; G43.909 Migraine, unspecified, not intractable, without status migrainosus; I25.10 Atherosclerotic heart disease of native coronary artery without angina pectoris; E78.00 Pure hypercholesterolemia, unspecified; I10 Essential (primary) hypertension; J43.9 Emphysema, unspecified; G89.29 Other chronic pain; F41.9 Anxiety disorder, unspecified; F32.A Depression, unspecified; F15.90 Other stimulant use, unspecified, uncomplicated; Z86.19 Personal history of other infectious and parasitic diseases; Z20.9 Contact with and (suspected) exposure to unspecified communicable disease; Z90.89 Acquired absence of other organs; Z90.49 Acquired absence of other specified parts of digestive tract; Z98.890 Other specified postprocedural states; Z98.51 Tubal ligation status; Z56.0 Unemployment, unspecified; Z59.00 Homelessness unspecified; Z88.0 Allergy status to penicillin; Z88.8 Allergy status to other drugs, medicaments and biological substances; Z91.010 Allergy to peanuts; Z88.2 Allergy status to sulfonamides; Z91.040 Latex allergy status; Z91.018 Allergy to other foods; Z79.2 Long term (current) use of antibiotics; Z79.899 Other long term (current) drug therapy
CPT/HCPCS: 36415; 80053; 80305; 81001; 83690; 85025; 87077; 87088; 87186; 99284

== ENCOUNTER 2021-11-20 13:08 | Emergency (ER) | payer BC, MEDICAID ==
[~2021-11-20] VITALS: Ht 160 cm; Wt 60.0 kg
[~2021-11-20 13:08] MED LIST changes: +ONDA4TAB12 PO
[2021-11-20 13:27] VITALS: BP 133/70
[2021-11-20] MEDS ORDERED: acetaminophen 325mg tablet PO ONE (14:25)
== END 2021-11-20 14:41 | disposition home or self-care (01) ==
LOC: ER 13:09
DX: M25.562 Pain in left knee (principal); M25.462 Effusion, left knee; F15.10 Other stimulant abuse, uncomplicated; G43.909 Migraine, unspecified, not intractable, without status migrainosus; I25.10 Atherosclerotic heart disease of native coronary artery without angina pectoris; E78.00 Pure hypercholesterolemia, unspecified; I10 Essential (primary) hypertension; J43.9 Emphysema, unspecified; F17.200 Nicotine dependence, unspecified, uncomplicated; G89.29 Other chronic pain; Z87.19 Personal history of other diseases of the digestive system; Z90.49 Acquired absence of other specified parts of digestive tract; Z86.79 Personal history of other diseases of the circulatory system; Z98.890 Other specified postprocedural states; Z56.0 Unemployment, unspecified; Z59.00 Homelessness unspecified; Z98.51 Tubal ligation status; Z79.899 Other long term (current) drug therapy; Z88.0 Allergy status to penicillin; Z91.018 Allergy to other foods; Z91.010 Allergy to peanuts; Z88.2 Allergy status to sulfonamides; Z88.1 Allergy status to other antibiotic agents; Z91.040 Latex allergy status; Z88.8 Allergy status to other drugs, medicaments and biological substances
CPT/HCPCS: 99282

== ENCOUNTER 2021-12-01 16:05 | Emergency (ER) | payer BC, MEDICAID ==
[~2021-12-01] VITALS: Ht 160 cm; Wt 58.6 kg
[2021-12-01 16:28] VITALS: BP 127/70
--- NOTE | 2021-12-01 20:42 | NUR ---
skin tear lt forarm cleaned and dressed
== END 2021-12-01 21:10 | disposition home or self-care (01) ==
LOC: ER 16:06
DX: M25.562 Pain in left knee (principal); G43.909 Migraine, unspecified, not intractable, without status migrainosus; I25.10 Atherosclerotic heart disease of native coronary artery without angina pectoris; E78.00 Pure hypercholesterolemia, unspecified; I10 Essential (primary) hypertension; J43.9 Emphysema, unspecified; G89.29 Other chronic pain; F41.9 Anxiety disorder, unspecified; F32.A Depression, unspecified; F20.9 Schizophrenia, unspecified; F15.90 Other stimulant use, unspecified, uncomplicated; Z86.19 Personal history of other infectious and parasitic diseases; Z90.89 Acquired absence of other organs; Z90.49 Acquired absence of other specified parts of digestive tract; Z98.890 Other specified postprocedural states; Z98.51 Tubal ligation status; Z56.0 Unemployment, unspecified; Z59.00 Homelessness unspecified; Z88.0 Allergy status to penicillin; Z91.010 Allergy to peanuts; Z88.2 Allergy status to sulfonamides; Z88.8 Allergy status to other drugs, medicaments and biological substances; Z91.040 Latex allergy status; Z88.5 Allergy status to narcotic agent; Z79.899 Other long term (current) drug therapy; W19.XXXA Unspecified fall, initial encounter; Y93.89 Activity, other specified; Y92.89 Other specified places as the place of occurrence of the external cause; Y99.8 Other external cause status
CPT/HCPCS: 99282; J7030

== ENCOUNTER 2021-12-28 10:05 | Emergency (ER) | payer BC, MEDICAID ==
[~2021-12-28] VITALS: Ht 160 cm; Wt 61.4 kg
[2021-12-28 10:20] VITALS: BP 102/63
[2021-12-28] MEDS ORDERED: ipratropium/albuterol 3ml nebule NEB ONE (10:55)
[2021-12-28] MEDS ORDERED: predniSONE 20 mg tablet PO ONE (10:55)
[2021-12-28] MEDS ORDERED: PRED20TA PO (11:21)
[2021-12-28] MEDS ORDERED: BUDE180A INH (11:21)
== END 2021-12-28 11:44 | disposition home or self-care (01) ==
LOC: ER 10:05
DX: J43.9 Emphysema, unspecified (principal); G43.909 Migraine, unspecified, not intractable, without status migrainosus; I11.9 Hypertensive heart disease without heart failure; F12.10 Cannabis abuse, uncomplicated; G89.29 Other chronic pain; M54.9 Dorsalgia, unspecified; F20.9 Schizophrenia, unspecified; F32.A Depression, unspecified; F31.9 Bipolar disorder, unspecified; F17.200 Nicotine dependence, unspecified, uncomplicated; Z59.00 Homelessness unspecified; Z56.0 Unemployment, unspecified
CPT/HCPCS: 71046; 94640; 99283; J7512; 94760